=== PATIENT | female | born 1940 | race Caucasian/White ===

== ENCOUNTER 2021-06-04 10:08 | Outpatient (CLI) | payer MEDICARE, SELFPAY ==
--- NOTE | ~2021-06-04 | US_ITS ---
EXAMINATION: US venous doppler [facility] DATE: 06/04/2021 11:05 INDICATION: Bilateral lower limb swelling TECHNIQUE: Scott scale images without and with compression and Doppler images of the bilateral lower e xtremity veins were obtained. COMPARISON: None FINDINGS: The right common femoral vein, profunda femoral vein, femoral vein, popliteal vein, peroneal trunk, p osterior tibial veins, and greater saphenous vein are patent. A right-sided Bashir's cyst is noted whi ch measures up to 6.7 cm. The left common femoral vein, profunda femoral vein, femoral vein, popliteal vein, peroneal trunk, po sterior tibial veins, and greater saphenous vein are patent. IMPRESSION: 1. Patent bilateral lower extremity veins. No evidence of deep venous thrombosis. 2. Right-sided Bashir's cyst. Reviewed, dictated and finalized at location A. CINE TECH IMPRESSION: 1. Patent bilateral lower extremity veins. No evidence of deep venous thrombosi s. 2. Right-sided Bashir's cyst.
== END 2021-06-04 10:09 | disposition home or self-care (01) ==
LOC: ANHIMG 10:12
PROVIDERS: PCP Family Medicine; Visit Provider Physician Assistant
DX: M79.89 Other specified soft tissue disorders (principal); M71.21 Synovial cyst of popliteal space [Baker], right knee
CPT/HCPCS: 93970

== ENCOUNTER → 2021-06-05 10:11 | Outpatient (CLI) | payer MEDICARE, SELFPAY ==
--- NOTE | ~2021-06-05 | MM_ITS ---
EXAMINATION: MM screening eder BI w bernice HISTORY: Screening TECHNIQUE: Craniocaudal and mediolateral oblique 3-D tomosynthesis images were obtained and synthetic 2-D images were generated. CAD analysis was submitted and interpreted. COMPARISON: Comparison to multiple prior studies sequentially, with oldest reviewed study dated 04/2014. BREAST PARENCHYMAL COMPOSITION: There are scattered areas of fibroglandular density. FINDINGS: There is no evidence of suspicious mass, calcification, or architectural distortion to sugg est malignancy in either breast. There has been no suspicious interval change. IMPRESSION: 1. No mammographic evidence of malignancy. 2. Recommend routine screening mammography in one year. BI-RADS Category 1: Negative Reviewed, dictated and finalized at location A. E LINING CURER
--- NOTE | ~2021-06-05 | DEXA_ITS ---
Bone Density Report Name: ANCA ESQUIVEL Age: 80 Sex: Female Ethnicity: White Date of : 1940 Indication: postmenopausal; screening for osteoporosis; height loss; Referring Provider: Neel Painter Study: Bone densitometry was performed. Exam Date: June 05, 2021 Accession number: [id number] Bone Density: Region BMD T-score Z-score Classification AP Spine (L1-L4) 1.179 1.2 4.0 Normal Femoral Neck (Left) 0.734 -1.0 1.4 Normal Total Hip (Left) 0.798 -1.2 1.0 Osteopenia Femoral Neck (Right) 0.700 -1.3 1.1 Osteopenia Total Hip (Right) 0.808 -1.1 1.1 Osteopenia Total Hip Mean 0.803 -1.2 1.1 Osteopenia World Health Organization criteria for BMD impression classify patients as: Normal (T-score at or above -1.0), Osteopenia (T-score between -1.0 and -2.5), or Osteoporosis (T-score at or below -2.5). 10-year Fracture Risk(1): Major Osteoporotic Fracture 13% Hip Fracture 3.2% Reported Risk Factors: [place] (), Neck BMD=0.700, BMI=25.2 (1) FRAX(R) Version 3.08. Fracture probability calculated for an untreated patient. Fracture probability may be lower if the patient has received treatment. Clinical Information Provided by Patient: Has used the following medications: Calcium Patient maximum height was 62 Menopause Age: 47 Does not regularly consume dairy products Drinks caffeinated beverages Onset of menses at age 10 Number of children 3 Impression: The patient has low bone mass, based on the Right Femoral Neck T-score. The patient has an estimated ten-year risk of hip fracture of 3.2% and an estimated ten-year risk of major fracture of 13%, based on the WHO FRAX algorithm. Discussion: BONE DENSITY IS LOW AT ONE OR MORE SKELETAL SITES. THE PATIENT'S BMD AND CLINICAL RISK FACTORS CONTRIBUTE TO THIS PATIENT'S INCREASED RISK OF FRACTURE. This patient's lowest T-score is low at one or more skeletal sites. It meets the World Health Organization's (WHO) criteria for ?low bone mass? (T-score between -1.0 and -2.5). The patient's 10-year risk of hip fracture as calculated by FRAX exceeds the threshold where pharmacological therapy is recommended by the National Osteoporosis Foundation (NOF). However, all treatment decisions require clinical judgment and consideration of individual patient factors, including patient preferences, comorbidities, previous drug use, risk factors not captured in the FRAX model (e.g., frailty, falls, vitamin D deficiency, increased bone turnover, interval significant decline in bone density) and possible under or overestimation of fracture risk by FRAX. The patient should follow a healthful lifestyle (good nutrition with adequate calcium and vitamin D, and appropriate weight-bearing exercise). Follow-Up: Consider a repeat BMD and Vertebral Fracture Assessm
== END ==
PROVIDERS: PCP Family Medicine; Visit Provider Physician Assistant
DX: Z12.31 Encounter for screening mammogram for malignant neoplasm of breast (principal); Z78.0 Asymptomatic menopausal state; M85.89 Other specified disorders of bone density and structure, multiple sites
CPT/HCPCS: 77063; 77067; 77080

== ENCOUNTER 2022-01-20 09:48 | Outpatient (CLI) | payer MEDICARE, SELFPAY ==
--- NOTE | 2022-01-20 11:09 | ECG_ITS ---
Measurements Intervals [place] Rate: 68 P: 54 RI: 144 QRS: 20 QRSD: 93 T: 52 QT: 321 QTc: 342 Interpretive Statements SINUS RHYTHM BASELINE ARTIFACT NONSPECIFIC ST & T-WAVE ABNORMALITY BORDERLINE ECG NO PREVIOUS ECG AVAILABLE FOR COMPARISON Electronically Signed On 01-20-2022 15:11:51 CDT by Mark Chow M.D.
[2022-01-20 12:42] LABS: Basophils Absolute Auto 0.1 K/mm3 (0.0-0.1); Basophils Percent Auto 0.7 % (0.2-1.2); Eosinophils Absolute Auto 0.2 K/mm3 (0-0.3); Eosinophils Percent Auto 2.8 % (0-4.4); Hematocrit 44.5 % (37.0-47.0); Hemoglobin 14.1 g/dL (12.0-15.0); Immature Granulocyte Absolute 0.02 K/mm3 (0.00-0.031); Immature Granulocyte Percent A 0.3 % (0-0.5); Lymphocytes Absolute Auto 2.02 K/mm3 (0.9-3.2); Mean Corpuscular HGB Conc 31.7 g/dl (32-36); Mean Corpuscular Hemoglobin 30.3 pg (26-34); Mean Corpuscular Volume 95.7 fl (80-100); Mean Platelet Volume 10.5 fl (7.4-10.4); Monocytes Absolute Auto 0.5 K/mm3 (0.1-0.6); Neutrophils Absolute Auto 3.9 K/mm3 (1.3-6.7); Neutrophils Percent Auto 58.2 % (45.5-73.1); Platelet Count Result 186 k/mm3 (150-375); Red Blood Count 4.65 M/mm3 (4.2-5.4); Red Cell Distribution Width 13.8 % (11.5-14.5); White Blood Count 6.7 K/mm3 (4.5-10.0)
[2022-01-20 12:53] LABS: Anion Gap 10 mmol/L (8-16); Blood Urea Nitrogen 21 mg/dL (7-17); Calcium 10.3 mg/dL (8.4-10.2); Carbon Dioxide 30 mmol/L (22-30); Chloride 102 mmol/L (98-107); Estimated Glomerular Filt Rate 53; Glucose 83 mg/dL (65-110); Potassium 4.2 mmol/L (3.4-5.0); Sodium 142 mmol/L (137-145)
[2022-01-20 12:56] LABS: Prothrombin Time 12.7 Seconds (11.1-14.7)
[2022-01-20 12:56] LABS: Urine Cotinine NEGATIVE
[2022-01-20 13:10] LABS: Hemoglobin A1C 5.3 % (<5.7)
== END 2022-01-20 09:49 | disposition home or self-care (01) ==
LOC: ANHSURGERY 09:55
PROVIDERS: Anesthesiology; PCP Emergency Medicine; Visit Provider Orthopaedic Surgery
DX: M17.12 Unilateral primary osteoarthritis, left knee (principal); N18.9 Chronic kidney disease, unspecified; Z01.818 Encounter for other preprocedural examination; R94.31 Abnormal electrocardiogram [ECG] [EKG]
CPT/HCPCS: 36415; 80048; 80307; 82040; 83036; 85025; 85610; 85730; 86850; 86900; 86901; 87081; 93005

== ENCOUNTER 2022-01-29 01:24 | Day surgery (SDC) | payer MEDICARE, SELFPAY ==
[2022-01-20 10:20] VITALS: PULSE 65; RESP 16; TEMP 36.4; O2SAT 98; BMI 25.1
--- NOTE | 2022-01-20 10:32 | PC.NURSE ---
Report to the Outpatient Waiting Room, entrance under the green pavilion located off [facility], at time __6:30AM on date _01/29/22 . OR Time: __8:30AM . Time changes happen often and if your time is changed the preop area will call you the afternoon before. - You and your visitor will be asked to self-screen and do not enter if you have any COVID symptoms. - Only one visitor and NO children visitors are allowed at this time. - The patient visitor is requested to leave or wait in car when not with patient due to restrictions. - A mask is required within the hospital. Patients may have clear liquids (water, carbonated beverages, clear teas, apple juice) until 3 hours prior to surgery with a maximum of 20 ounces. - No food from midnight until time of surgery Take the following medications with a SIP of water the morning of surgery: ___AMLODIPINE, METOPROLOL Medications to discontinue per physician HOLD ALL VITAMINS/SUPPLEMENTS (MULTIPLE VITAMINS & GLUCOSAMINE) 3 DAYS PRE-OP- LAST DOSE 01/25/22, __HOLD ASPIRIN 5 DAYS PRE-OP- LAST DOSE 01/23/22 Please no make-up, nail japanese, hairspray, perfume, deodorant, or body powder the day of surgery. No jewelry (including any body piercings) or valuables the day of surgery, leave them at home. Please take a shower or bath the night before, or the morning of, surgery with an antibacterial soap. Wear comfortable, loose fitting clothing. Children are encouraged to wear pajamas. - Jewelry must be removed prior to entering the operating room. Rings and piercings that are not removed may be cut off. - The hospital will not accept responsibility for valuables. - Please leave all valuables, including medications, at home the day of surgery. If you are going home after surgery, a licensed electric train driver must drive you home. - NO public transportation without another adult. - We recommend that an adult stay with you for 24 hours following discharge. - We also recommend that you do not drive, make important decision, drink alcoholic beverages, or take any drugs that were not prescribed by your health care provider for at least 24 hours after your discharge time. Follow any additional instructions given to you from your surgeon. If you or anyone in your household have experienced Covid symptoms in the past week, please notify your surgeon or the nurse liaison at the phone number below for possible testing. Telephone instructions given to _PATIENT and asked if any additional questions and then verbalized understanding. Patient advised to call surgeon office or pre surgery nurse liaison [phone] if any additional questions.
--- NOTE | 2022-01-27 11:57 | PM.IMHP ---
H&P: HPI History of Present Illness Date/Time: 01/27/22 11:57 Chief Complaint: the patient is an 81-year-old female who presents with chronic ongoing history of left knee pain. The patient has advanced primary osteoarthritis unrelieved by conservative measures including cortisone therapy and anti-inflammatories over time. The patient has aching pain with startup pain rest pain and night pain cannot stand or walk for long periods. She has limited her daily activities it even keeps her awake at night. X-rays show advanced primary osteoarthritis left knee joint. The patient has discussed treatment options in detail with Dr. Lomeli has failed conservative measures she would now like to proceed with a left total knee arthroplasty. Review of Systems Review of Systems: Ten point review of systems otherwise negative [facility] Past Medical History Medical History Bone spur of other site Surgical History Surgical History H/O toe surgery H/O tubal ligation History of cholecystectomy Family History Family History Mother Hypertension Family history of Parkinson's disease Father Family history of elevated blood lipids Cerebrovascular accident Sibling Carcinoma of colon Family history of malignant neoplasm of breast in first degree relative Other Family history of malignant neoplasm of breast Social History Social History Smoking status: Never smoker Alcohol intake: never Substance use: never Substance use type: does not use Additional living arrangements comments: Gender identity (if verbalized by the patient): Female Spiritual care concerns: No Agree to blood products: Yes Meds Home Medications and Allergies Home Medications Medication Instructions Recorded Confirmed Type aspirin 81 mg tablet,delayed 81 mg PO DAILY 04/27/19 01/20/22 History release (Adult Low Dose Aspirin) betamethasone dipropionate 0.05 % 1 applic topical BID PRN itching 11/18/19 01/20/22 Rx topical cream #45 grams cetirizine 10 mg capsule 10 mg PO DAILY 01/20/22 01/20/22 History fluticasone propionate 50 2 spray intranasal DAILY PRN 01/20/22 01/20/22 History mcg/actuation nasal Congestion spray,suspension (Flonase Allergy Relief) glucosamine-chondroitin 750 mg-600 2 tablet PO DAILY 01/20/22 01/20/22 History mg tablet multivitamin 1 tablet PO DAILY 01/20/22 01/20/22 History pramipexole 0.25 mg tablet 0.25 mg PO TID 01/20/22 01/20/22 History Allergies Allergy/AdvReac Type Severity Reaction Status Date / Time vaccine adjuvant system, Allergy Intermediate local Verified 01/20/22 10:03 AS01B liposomal edema and [From Shingrix (PF)] rash , extensive varicella-zoster virus Allergy Intermediate local Verified 01/20/22 10:03 glycoprotein E, recombinant edema and [From Shingrix (PF)] rash , extensive Exam Narrative: on exam the patient is noted be a well-developed well-nourished female no acute distress alert oriented x3. Normal mood and affect. The patient is noted be 5 ft 1 in tall 127 lb the BMI of 24. Hearing and vision are intact. Respiratory is good no distress. Pulse regular rate and rhythm. Abdomen benign. Extremities showed the patient's left knee to be painful with manipulation and range of motion. She has tenderness on the joint lines. Extremes of motion with subpatellar crepitation mild effusion swelling knee joint is otherwise stable strength is 5 5 neurovascularly she is intact hips move well with negative Stinchfield negative Ronni. Patient walks a limp because of her left knee pain. Skin is intact without rashes or lesions. 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 Assessment and Plan Assessment and plan (1) Primary osteoarthritis of left knee: Co
[2022-01-29] VITALS (20 sets, daily range): BP systolic 106–161; BP diastolic 49–68; PULSE 45–74; RESP 11–16; TEMP 36.2–36.7; O2SAT 94–100
--- NOTE | ~2022-01-29 | XR_ITS ---
EXAMINATION: XR knee LT 2V DATE: 01/29/2022 09:28 INDICATION: Postoperative evaluation following left total knee arthroplasty. TECHNIQUE: Anteroposterior and lateral views of the left knee were obtained. COMPARISON: None. FINDINGS: Left total knee arthroplasty with patellar resurfacing appears well seated and in near anatomic align ment. No fractures identified. Proximal patellar enthesophytes. Skin giovanni and expected postoperative subcutaneous and intra-articular gas. IMPRESSION: 1. Left total knee arthroplasty, negative for postoperative purposes. Reviewed, dictated and finalized at location B.
[2022-01-29] MEDS: LACTATED RINGERS 1,000 ML 30 ML IV CONT ×2 (07:00→10:36)
[2022-01-29] MEDS: ACETAMINOPHEN 500 MG TABLET 1000 MG PO (07:02)
--- NOTE | 2022-01-29 07:10 | WPDHPUPDATE1 ---
History and Physical Update Update Date/Time: 01/29/22 07:10 History and Physical has been reviewed, including an updated exam of the patient. There are NO changes in the patient's condition. Risks, benefits, and alternatives have been discussed and questions answered. Patient agrees to proceed with procedure.
[2022-01-29] MEDS: TRANEXAMIC ACID 1,000MG/ISO100 1,000 MG/100 ML BAG 200 MG IVPB (07:15)
--- NOTE | 2022-01-29 07:24 | WPDANESEPPF ---
Anes - Initial Pre Proc Eval Procedure: Operation Date: 01/29/22 07:30 Proposed Procedures p Left Total Knee Arthroplasty - Addy Lomeli MD Date/Time: 01/29/22 07:24 Surgeon: Addy Lomeli MD Pre Op Diagnosis: OA left knee Patient Data Age: 81 Gender: F Height: 1.52 m Weight: 58.2 kg Last Vital Signs Temp 36.3 C L 01/29/22 07:10 Pulse 62 01/29/22 07:10 Resp 16 01/29/22 07:10 BP 161/68 H 01/29/22 07:10 Pulse Ox 98 01/29/22 07:10 O2 Del Method Room Air 01/29/22 07:10 Allergies Allergy/AdvReac Type Severity Reaction Status Date / Time vaccine adjuvant system, Allergy Intermediate local Verified 01/29/22 06:39 AS01B liposomal edema and [From Shingrix (PF)] rash , extensive varicella-zoster virus Allergy Intermediate local Verified 01/29/22 06:39 glycoprotein E, recombinant edema and [From Shingrix (PF)] rash , extensive Home Medications Medication Instructions Recorded Confirmed Type aspirin 81 mg tablet,delayed 81 mg PO DAILY 04/27/19 01/29/22 History release (Adult Low Dose Aspirin) betamethasone dipropionate 0.05 % 1 applic topical BID PRN itching 11/18/19 01/29/22 Rx topical cream #45 grams cetirizine 10 mg capsule 10 mg PO DAILY 01/20/22 01/29/22 History fluticasone propionate 50 2 spray intranasal DAILY PRN 01/20/22 01/29/22 History mcg/actuation nasal Congestion spray,suspension (Flonase Allergy Relief) glucosamine-chondroitin 750 mg-600 2 tablet PO DAILY 01/20/22 01/29/22 History mg tablet multivitamin 1 tablet PO DAILY 01/20/22 01/29/22 History pramipexole 0.25 mg tablet 0.25 mg PO TID 01/20/22 01/29/22 History Patient hx anesthesia problems: none Family hx anesthesia problems: none Results Review: All pre-operative results and documents have been reviewed as part of the pre-operative evaluation. [facility] Past Medical History Medical History (Updated 01/29/22 @ 07:24 by Sterling Paris MD) Bone spur of other site HTN (hypertension) Hyperlipidemia Surgical History Surgical History H/O toe surgery H/O tubal ligation History of cholecystectomy Family History Family History Mother Hypertension Family history of Parkinson's disease Father Family history of elevated blood lipids Cerebrovascular accident Sibling Carcinoma of colon Family history of malignant neoplasm of breast in first degree relative Other Family history of malignant neoplasm of breast Social History Social History Smoking status: Never smoker Alcohol intake: never Substance use: never Substance use type: does not use Living arrangements: with family Additional living arrangements comments: Gender identity (if verbalized by the patient): Female Spiritual care concerns: No Agree to blood products: Yes Anes - Eval Final PreProcedure Day of Procedure 01/29/22 07:24 Patient weight: normal Heart: regular rate and rhythm Lungs: clear to auscultation Airway: Mallampati scale class II Neurological: alert and oriented Last oral intake: >/= 8 hours ASA classification: II Emergent: no Anesthetic plan: proceed Anesthesia type and monitoring: general LMA and standard monitoring Results Review: All pre-operative results and documents have been reviewed as part of the pre-operative evaluation. Informed Consent: The patient's anesthetic plan and its attendant risks and benefits were discussed with the patient/family/POA. Questions were solicited and answers provided to the satisfaction of the patient/family/POA.
--- NOTE | 2022-01-29 07:25 | WPDANESPNB ---
Anes - Peripheral Nerve Block Date/Time: 01/29/22 07:25 I have discussed with the patient/family/POA the placement of a peripheral nerve block for post-operative pain management, including associated risks, benefits, complications, and side effects. Alternative methods of post-operative analgesia were detailed. Questions were solicited and answers provided to the satisfaction of the patient/family/POA. Time-Out: A pre-procedural Time-Out was completed immediately before starting the procedure and confirmed: Patient Identification, Site, Procedure, Patient Position and the Availability of Requisite Equipment. Clinical Indications: Acute post-operative pain management requested by the operative surgeon. Nerve Block Insertion Note Anes-nerve block: femoral left Patient position: supine Skin prep: chlorhexidine Needle: 22 gauge, stimulating, insulated echogenic needle. Needle length: 50 mm Technique: nerve stimulation lost at (mA) (.3) Injectate: bupivacaine 0.25% with epi 5 mcg/ml (20cc) Observations: tolerated well Complications: none Procedure start time:: 719 Procedure end time:: 724
[2022-01-29] MEDS: ceFAZolin 2 GM/D5W 50 ML 2 GM/50 ML BAG IVPB (07:31)
[2022-01-29] MEDS: GENTAMICIN BONE CEMENT REFOBACIN 1 EACH TOPICAL (07:59)
--- NOTE | 2022-01-29 08:50 | P.OP_ITS ---
Procedure Note - Detailed Date of Procedure 01/29/22 Pre-op Diagnosis OA left knee Post-op Diagnosis Same Procedure Performed [Left] total knee arthroplasty Surgeon Addy Lomeli MD [employer] T[employer] Alvino De Anesthesia General Description of Procedure The patient was brought to the operating room. General anesthetic was administered. Placed on the operating table and sterilely prepped and draped in usual manner. A longitudinal incision was made. Tourniquet inflated to 300 mmHg for a total of [time] minutes. Dissection carried down to the fascia. Medial parapatellar incision was made and the patella subluxated laterally. Patella cut from [19] to [14] mm and sized for a [34] mm button. The tibia cut perpendicular to the long axis and femur cut in 5 degrees of valgus, a [65] femur trialed. [67] tibia was felt to fit the best. The soft tissue balanced, hemostasis obtained. All [address], [67] tibia, [65] femur, [34] mm patella, and [] mm poly. Motion was 0-125 degrees with good stablility and flexion and extension. The wound was closed with #2 v icryl, 2-0 Vicryl and giovanni. Implants [employer] Estimated Blood Loss 200 IV Fluids 250 Drains No Packing No Pathology None sent Complications No immediate complications Condition Stable Disposition PACU
[2022-01-29] MEDS: fentaNYL CITRATE INJ (*CRX) 100 MCG/2 ML VIAL 25 MCG IV PUSH ×4 (09:34→10:34)
--- NOTE | 2022-01-29 09:38 | P.OPB_ITS ---
Procedure Note - Brief Procedure Note - Brief Date of procedure: 01/29/22 Pre-op diagnosis: OA left knee preop diagnosis-Advanced primary osteoarthritis left knee postop diagnosis - advanced primary osteoarthritis left knee status post left total knee arthroplasty. Procedure performed: Left total knee arthroplasty Description of procedure: I, Alvino De, entered the operating room at 7:15am, I then proceeded to assist with positioning of the patient application of a tourniquet prepping and draping for the surgical procedure. Once the placement was done and the patient was under anesthesia assisted with sterile draping and then preparation of the operative field. Once Dr. Lomeli made the incision I assisted with hemostasis, wound retraction, implant placement and irrigation throughout the procedure. Once the implants were in place and the cement was dry and then proceeded with excess cement removal hemostasis using suction and Bovie and Surgicel powder. I then proceeded with wound closure starting with the deep layers closing the capsule of the knee with 2. Vicryl and 2. Quill type suture. I irrigated the wound once again then closed the superficial skin layers with 2- 0 Vicryl 0 Quill and giovanni. I then applied a sterile dressing and help transfer the patient from the operating table to the stretcher for transport to the recovery room. I exited the room at 9:15 a.m. for total time of 2 hours involved in the procedure. Patient was discharged to recovery room in good condition no operative complications were noted. Total blood loss was 200 cc Surgeon: Addy Lomeli MD 1st graduate research assistant- Alvino De, PAC
--- NOTE | 2022-01-29 11:54 | SUR.PHASEI ---
Vital signs stable pain well controlled. Patient awaiting bed placement on 2 Med. Patient will be moved to pre-op holding area until bed becomes available. Cat, RN assuming care of this patient. Patient's family updated.
--- NOTE | 2022-01-29 11:56 | SUR.PHASEI ---
1156- Assuming care for patient in pre-op holding room 11 due to room on floor being unavailable at this time. Patient and daughter verbalize understanding.
--- NOTE | 2022-01-29 13:25 | ADMGEN ---
This patient, Alyson Dumont, was admitted to Medical Room 255-. Patient/family oriented to hospital policies and general routines including ID bracelet, bed and alarms, visiting hours, pain management, procedures, bathroom and other care routines, personal items, smoking policy, room service/diet, and visiting hours. Information on how to activate the Rapid Response Team has been discussed. Patient/Family are encouraged to report perceived risks to care and to ask questions if they do not understand what they are told or what they should do.
[2022-01-29] MEDS: ASPIRIN 81 MG ENTERIC TABLET PO (16:23)
[2022-01-29] MEDS: RIVAROXABAN 10 MG TABLET PO (16:23)
[2022-01-29] MEDS: FAMOTIDINE 20 MG TABLET PO (16:24)
[2022-01-29] MEDS: MULTIVITAMINS THERAPEUTIC TAB (*BKC) 1 TABLET PO (16:26)
[2022-01-29] MEDS: allopurinoL 300 MG TABLET PO (16:27)
[2022-01-29] MEDS: CELECOXIB 200 MG CAPSULE PO (16:27)
[2022-01-29] MEDS: SIMVASTATIN 10 MG TABLET PO (16:28)
[2022-01-29] MEDS: SENNA/DOCUSATE SODIUM TABLET 2 TAB PO (16:28)
[2022-01-29] MEDS: PRAMIPEXOLE 0.25 MG TABLET PO (16:29)
[2022-01-29] MEDS: polyethylene glycoL 3350 17 GM POWD.PACK PO (16:31)
[2022-01-29] MEDS: HYDROcodone/acetaminophen (*CRX) 7.5-325 MG TABLET 1 TAB PO ×2 (17:53→20:11)
--- NOTE | 2022-01-29 20:06 | PM.IMCN ---
Assessment and Plan Assessment and plan (1) History of total knee arthroplasty: Code(s): Z96.659 - Presence of unspecified artificial knee joint Status: Acute Assessment and Plan: - per Dr. Lomeli today. See postop report. Left knee dressing is dry intact. - the patient is requesting home health assistance when she goes home because her has dementia and is not able to help much at all. She stated that her daughter can help until this Thursday but then her daughter has to go back to work. - I did consult the home care rn for further assistance. - the patient stated that she is supposed to go to outpatient physical therapy but stated that she may not be able to attend that physical therapy and she will have to make other arrangements because she will be able to drive and will not have anybody the drive her. She may need assistance with getting a ride. - DVT prophylaxis per ortho it looks like the patient is on SCDs And she is on Xarelto. - postop care per Dr. Lomeli. - analgesics per Dr. Lomeli. The patient has fentanyl ordered as well as Celebrex and [place] -PT and OT per Dr. Lomeli. (2) Gout, unspecified: Qualifiers: Gout site: unspecified site Gout etiology: unspecified cause Chronicity: unspecified Qualified Code(s): M10.9 - Gout, unspecified Code(s): M10.9 - Gout, unspecified Status: Acute Assessment and Plan: - her allopurinol has been continued. (3) Essential (primary) hypertension: Code(s): I10 - Essential (primary) hypertension Status: Acute Assessment and Plan: -Her amlodipine has been continued -her metoprolol has been continued. -her Diovan has been continued. Plan I think Dr. Lomeli for the opportunity to consult on this pleasant lady. HPI Data of Consult Consult date: 01/29/22 Requesting Physician: Addy Lomeli MD Primary Care Provider: Alexei Lambert MD Consult Narrative Narrative: Alyson Dumont is a 81 year old female who has chronic ongoing history of left knee pain. The patient is a fairly healthy female. The patient has advanced primary osteoarthritis to her left knee. The patient has tried conservative measures including cortisone therapy and anti-inflammatories. The patient has achy pain with start-up, rest pain and night pain. The patient stated that she went shopping 1 day and was in severe pain to that left knee. Then she decided that she wanted to undergo a left total knee arthroplasty per Dr. Lomeli. Estimated blood loss was 200 cc. Please see operative note. The patient stated that she is not nauseated and that she also has been up to the chair. the patient has an ice pack to left leg and is requesting to have the continuous ice therapy. The patient was admitted to surgery and the hospitalist group was asked to consult on the patient. Date of service is 01/29/2022. Review of Systems Review of Systems: See HPI All systems reviewed & are unremarkable except as noted in HPI and below Constitutional: Constitutional: Reports as per HPI and Reports no additional constitutional complaints Eyes: Eyes: Reports as per HPI and Reports no additional eye complaints ENT: Reports system reviewed and no additional complaints, except as documented and Reports Normal hearing present Cardiovascular: Cardiovascular: Reports no additional cardiovascular complaints Respiratory: Respiratory: Reports no additional respiratory complaints and Reports no additional respiratory complaints Gastrointestinal: Gastrointestinal: Reports as per HPI and Reports no additional gastrointestinal complaints Musculoskeletal: Musculoskeletal: Reports no additional musculoskeletal complaints Integumentary/Breasts: Skin/Breast: Reports system reviewed and no additional complaints, except as docu and Reports as per HPI Neurologic: Reports system reviewed and no additional complaints, except as documented, Repor
[2022-01-30 02:00] VITALS: BP 122/62; PULSE 89; RESP 16; TEMP 36.7; O2SAT 96
[2022-01-30] MEDS: HYDROcodone/acetaminophen (*CRX) 7.5-325 MG TABLET 1 TAB PO ×3 (04:30→12:53)
[2022-01-30 05:15] VITALS: BP 107/67; PULSE 66; RESP 20; TEMP 36.6; O2SAT 98
[2022-01-30 06:15] LABS: Basophils Percent Auto 0.3 % (0.2-1.2); Eosinophils Percent Auto 0.1 % (0-4.4); Hematocrit 32.1 % (37.0-47.0); Hemoglobin 10.5 g/dL (12.0-15.0); Immature Granulocyte Absolute 0.06 K/mm3 (0.00-0.031); Immature Granulocyte Percent A 0.7 % (0-0.5); Lymphocytes Absolute Auto 1.31 K/mm3 (0.9-3.2); Lymphocytes Percent Auto 15.2 % (18.3-44.2); Mean Corpuscular HGB Conc 32.7 g/dl (32-36); Mean Corpuscular Hemoglobin 30.3 pg (26-34); Mean Corpuscular Volume 92.5 fl (80-100); Mean Platelet Volume 10.6 fl (7.4-10.4); Monocytes Absolute Auto 0.8 K/mm3 (0.1-0.6); Monocytes Percent Auto 9.7 % (2.6-8.5); Neutrophils Absolute Auto 6.4 K/mm3 (1.3-6.7); Platelet Count Result 144 k/mm3 (150-375); Red Blood Count 3.47 M/mm3 (4.2-5.4); Red Cell Distribution Width 13.4 % (11.5-14.5); White Blood Count 8.6 K/mm3 (4.5-10.0)
[2022-01-30 06:33] LABS: Anion Gap 9 mmol/L (8-16); Blood Urea Nitrogen 26 mg/dL (7-17); Calcium 9.4 mg/dL (8.4-10.2); Carbon Dioxide 26 mmol/L (22-30); Chloride 104 mmol/L (98-107); Estimated CRCL calculation 23 ml/min; Estimated Glomerular Filt Rate 43; Glucose 124 mg/dL (65-110); Sodium 139 mmol/L (137-145)
[2022-01-30] MEDS: SIMVASTATIN 10 MG TABLET PO (09:26)
[2022-01-30] MEDS: PRAMIPEXOLE 0.25 MG TABLET PO ×2 (09:26→12:53)
[2022-01-30] MEDS: polyethylene glycoL 3350 17 GM POWD.PACK PO (09:26)
[2022-01-30] MEDS: SENNA/DOCUSATE SODIUM TABLET 2 TAB PO (09:26)
[2022-01-30] MEDS: FAMOTIDINE 20 MG TABLET PO (09:27)
[2022-01-30] MEDS: ASPIRIN 81 MG ENTERIC TABLET PO (09:27)
[2022-01-30] MEDS: amLODIPine BESYLATE 2.5 MG TABLET PO (09:27)
[2022-01-30] MEDS: VALSARTAN 160 MG TABLET 320 MG PO (09:27)
[2022-01-30] MEDS: CELECOXIB 200 MG CAPSULE PO (09:28)
[2022-01-30] MEDS: LORATADINE 10 MG TABLET PO (09:28)
[2022-01-30] MEDS: MULTIVITAMINS THERAPEUTIC TAB (*BKC) 1 TABLET PO (09:28)
[2022-01-30] MEDS: allopurinoL 300 MG TABLET PO (09:28)
[2022-01-30 09:48] LABS: Vitamin D 25 Hydroxy 35.8 ng/mL
[2022-01-30 10:18] VITALS: BP 124/56; PULSE 76; RESP 16; TEMP 36.6; O2SAT 96
--- NOTE | 2022-01-30 10:52 | PM.IMPN ---
Progress Note: A&P Assessment and Plan (1) History of total knee arthroplasty: Code(s): Z96.659 - Presence of unspecified artificial knee joint Status: Acute Assessment and Plan: 01/29/[address] Lomeli. Postop management per Ortho. DVT prophylaxis with Xarelto, per Ortho. PT/OT. Pain control with oral narcotics. H/H 14/44.5 to 01/19 today. Asymptomatic. No s/s bleeding at dressing site. Monitor. (2) Gout, unspecified: Qualifiers: Gout site: unspecified site Gout etiology: unspecified cause Chronicity: unspecified Qualified Code(s): M10.9 - Gout, unspecified Code(s): M10.9 - Gout, unspecified Status: Chronic Assessment and Plan: Chronic, stable, continue allopurinol (3) Essential (primary) hypertension: Code(s): I10 - Essential (primary) hypertension Status: Acute Assessment and Plan: Chronic, stable. Continue amlodipine, metoprolol, and Diovan (4) CKD (chronic kidney disease) stage 3, GFR 30-59 ml/min: Qualifiers: Chronic kidney disease stage 3 subtype: stage 3a (GFR 45-59) Qualified Code(s): N18.31 - Chronic kidney disease, stage 3a Code(s): N18.30 - Chronic kidney disease, stage 3 unspecified Status: Acute Assessment and Plan: BUN 26, creatinine 1.2, GFR 43 today. Mildly elevated from preop labs. Baseline BUN 23-29, creatinine 1.14 to 1.26, GFR 53 previously. Patient appears at baseline. We discussed drinking more water to stay hydrated and patient should minimize/avoid NSAID use. Plan Thank you for allowing us to take care of your patient. Please do not hesitate to call with questions. Time Spent With Patient Time with patient: 15 - 25 minutes Subjective Date/time seen: 01/30/22 10:52 Interval history: Patient found sitting up in bed with daughter at bedside. She reports pain to her left knee that is tolerable with oral narcotics and she was able to participate in therapy today. She denies chest pain, SOB, dizziness, palpitations, abd pain, N/V, dysuria or paresthesia. No bear catheter at this time. She does report her mouth has been dry. Review of Systems Review of Systems: All systems reviewed & are unremarkable except as noted in HPI and below Exam Narrative: General:?sitting up in the bed. No acute distress. Well-developed older adult female. HEENT:?Normocephalic.?Pupils equal and round. Sclera anicteric.? Oral mucosa moist.? Neck:??No JVD. Respiratory:?RR regular and unlabored. Lung sounds clear to auscultation without wheezing, rhonchi or rales. Cardiovascular:?Normal S1 and S2 regular rate and rhythm. No murmurs, gallops and rubs. Gastrointestinal:??Abdomen is soft, nontender, and nondistended with positive bowel sounds. Skin:??Warm and dry. Left knee conrado wrap clean, dry and intact. Skin turgor good. Extremities:??No cyanosis, clubbing, or edema. Radial and pedal pulses intact. Grossly normal ROM all extremities. Intact dorsi and plantar flexion. Neuro:??Alert and oriented x4. No gross focal deficits. Sensation BLE intact. Psych:??Pleasant and cooperative with normal mood and affect.? Objective Data Vital Signs Vital Signs: Vital Signs - 24 hr 01/29/22 11:00 01/29/22 11:15 01/29/22 11:30 Temperature Pulse Rate 58 L 45 L 45 L Respiratory Rate 16 12 11 L Blood Pressure 133/61 118/54 L 112/53 L Pulse Oximetry 100 100 100 Oxygen Delivery Nasal Cannula Nasal Cannula Nasal Cannula Oxygen Flow Rate 2 2 2 01/29/22 11:45 01/29/22 11:55 01/29/22 12:25 Temperature 97.1 F L Pulse Rate 52 L 49 L 49 L Respiratory Rate 12 12 14 Blood Pressure 122/50 L 121/55 L 118/50 L Pulse Oximetry 94 98 96 Oxygen Delivery Room Air Room Air Room Air Oxygen Flow Rate 01/29/22 12:55 01/29/22 13:25 01/29/22 13:55 Temperature 97.5 F L 97.4 F L Pulse Rate 61 60 57 L Respiratory Rate 14 14 16 Blood Pressure 135/49 L 134/55 L 129/51 L Pulse Oximetry 98 98
[2022-01-30] MEDS: CYCLOBENZAPRINE HCL 5 MG TABLET PO (11:29)
--- NOTE | 2022-01-30 11:34 | PM.PNORT ---
Progress Note: A&P Assessment and Plan (1) Primary osteoarthritis of left knee: Code(s): M17.12 - Unilateral primary osteoarthritis, left knee Status: Acute Plan patient is doing well status post left total knee arthroplasty she will discharge to home today in good condition. She voiced understanding and agrees with the above plan. See discharge orders. Subjective Subjective Date/Time Seen: 01/30/22 11:34 Is doing well postop day 1 status post left total knee arthroplasty. No complaints did very well in physical therapy states she has very little postop pain. She is ready for discharge to home. Review of Systems Review of Systems: Ten point review of systems negative Exam Narrative: on exam the patient is noted be in no acute distress alert oriented x3. Normal mood and affect. Vital signs are stable she is afebrile neurovascular the patient is intact wound is clean and dry left knee caps are benign ambulating well with physical therapy tolerated therapy very well very little postop pain today. Objective Data Vital Signs Vital Signs: Vital Signs - 24 hr 01/29/22 11:45 01/29/22 11:55 01/29/22 12:25 Temperature 36.2 C L Pulse Rate 52 L 49 L 49 L Respiratory Rate 12 12 14 Blood Pressure 122/50 L 121/55 L 118/50 L Pulse Oximetry 94 98 96 Oxygen Delivery Room Air Room Air Room Air 01/29/22 12:55 01/29/22 13:25 01/29/22 13:55 Temperature 36.4 C L 36.3 C L Pulse Rate 61 60 57 L Respiratory Rate 14 14 16 Blood Pressure 135/49 L 134/55 L 129/51 L Pulse Oximetry 98 98 97 Oxygen Delivery Room Air Room Air Room Air 01/29/22 15:14 01/29/22 16:00 01/29/22 16:06 Temperature 36.3 C L Pulse Rate 71 Respiratory Rate 16 Blood Pressure 133/59 L Pulse Oximetry 95 Oxygen Delivery Room Air Room Air 01/29/22 18:16 01/29/22 20:36 01/29/22 20:00 Temperature 36.6 C 36.6 C Pulse Rate 71 67 Respiratory Rate 16 16 Blood Pressure 136/60 135/51 L Pulse Oximetry 96 95 Oxygen Delivery Room Air 01/30/22 02:00 01/30/22 05:15 01/30/22 10:18 Temperature 36.7 C 36.6 C 36.6 C Pulse Rate 89 66 76 Respiratory Rate 16 20 16 Blood Pressure 122/62 107/67 124/56 L Pulse Oximetry 96 98 96 Oxygen Delivery Intake/Output Intake/Output: Intake & Output 01/27/22 01/28/22 01/29/22 01/30/22 23:59 23:59 23:59 23:59 Intake Total 2512 680 Balance 2512 680 Meds/Results Medications: Active Medications Generic Name Dose Route Start Last Admin Trade Name Freq PRN Reason Stop Dose Admin Hydrocodone Bitart/Acetaminophen 1 tab 01/29/22 14:17 Hydrocodone/Acetaminophen (*Crx) 5-325 Mg Tablet PO Q4H PRN Pain Rated 4-6 Hydrocodone Bitart/Acetaminophen 1 tab 01/29/22 14:17 Hydrocodone/Acetaminophen (*Crx) 7.5-325 Mg Tablet PO Q6H PRN Pain Rated 7-10 Hydrocodone Bitart/Acetaminophen 1 tab 01/29/22 14:17 01/30/22 09:25 Hydrocodone/Acetaminophen (*Crx) 7.5-325 Mg Tablet PO 1 tab Q4HR KATHERINE Administration Allopurinol 300 mg 01/29/22 14:17 01/30/22 09:28 Allopurinol 300 Mg Tablet PO 300 mg DAILY KATHERINE Administration Amlodipine Besylate 2.5 mg 01/29/22 14:17 01/30/22 09:27 Amlodipine Besylate 2.5 Mg Tablet PO 2.5 mg DAILY KATHERINE Administration Aspirin 81 mg 01/29/22 14:17 01/30/22 09:27 Aspirin 81 Mg Enteric Tablet PO 81 mg DAILY KATHERINE Administration Celecoxib 200 mg 01/29/22 17:00 01/30/22 09:28 Celecoxib 200 Mg Capsule PO 200 mg BIDWM KATHERINE Administration Cyclobenzaprine HCl 5 mg 01/29/22 14:17 01/30/22 11:29 Cyclobenzaprine Hcl 5 Mg Tablet PO 5 mg Q8H PRN Administration Spasms Diphenhydramine HCl 25 mg 01/29/22 14:17 Diphenhydramine Hcl Inj 50 Mg/Ml Vial IV PUSH Q6H PRN Itching Famotidine 20 mg 01/29/22 14:17 01/30/22 09:27 Famotidine 20 Mg Tablet PO 20 mg DAILY KATHERINE Administration Fluticasone Propionate 2 spray 01/29/22 14:17 Fluticasone Propionate 0
[2022-01-30 11:48] VITALS: PULSE 70
[2022-01-30] MEDS: METOPROLOL SUCCINATE EXT REL 25 MG TABCR PO (11:48)
--- NOTE | 2022-01-30 11:48 | PM.DS ---
DS: Admitting Diagnosis Discharge Date January 30, 2022 Admitting Diagnosis severe primary osteoarthritis left knee discharge diagnosis severe primary osteoarthritis left knee status post left total knee arthroplasty. DS: Discharge Diagnosis Discharge Diagnosis Plan Patient is doing well postop day 1 ready for discharge to home DS: Summary Hospital Course Reason for hospitalization: the patient was taken to the operating room on January 29, 2022 Dr. Lomeli performed a left total knee arthroplasty. Patient was kept overnight for observation and did well. Had no significant postoperative complaints or pain. Vital signs are stable she is afebrile neurovascular the patient is intact wound is clean and dry calves are benign up ambulating independently with a walker tolerating therapy well. Postop day 1 she was ready for discharge to home by her request. Hospital Course: postop day 1 the patient did well after total knee arthroplasty on January 29, 2022 no postoperative complaints were noted. Pain is well controlled vital signs are stable she is afebrile neurovascular patient is intact wound is clean and dry. Calves are benign. Up ambulating independently with a walker did well in therapy ready for discharge to home postop day 1. Time Spent with Patient Time attestation: Total time spent providing and/or coordinating discharge services: Exam Narrative: Vital signs stable afebrile neurovascular patient is intact wound is clean and dry calves are benign alert oriented x3. Did well in therapy no significant complaints postop day 1. DS: Data Data Completed and Pending Labs on day of discharge: Labs from last 24 hours 01/30/22 01/30/22 01/30/22 05:46 05:46 05:46 WBC 8.6 RBC 3.47 L Hgb 10.5 L D Hct 32.1 L MCV 92.5 MCH 30.3 MCHC 32.7 RDW 13.4 Plt Count 144 L MPV 10.6 H Immature Gran % (Auto) 0.7 H Neut % (Auto) 74.0 H Lymph % (Auto) 15.2 L Davis % (Auto) 9.7 H Eos % (Auto) 0.1 Baso % (Auto) 0.3 Lymph # (Auto) 1.31 Davis # (Auto) 0.8 H Eos # (Auto) 0.0 Baso # (Auto) 0.0 Abs Immat Gran (auto) 0.06 H Absolute Neuts (auto) 6.4 Absolute Nucleated RBC 0.0 Nucleated RBC % 0.0 Sodium 139 Potassium 4.0 Chloride 104 Carbon Dioxide 26 Anion Gap 9 BUN 26 H Creatinine 1.20 H Estim Creat Clear Calc 23 Estimated GFR 43 L Glucose 124 H Calcium 9.4 Vitamin D 25-Hydroxy 35.8 Procedures/Treatments: Left total knee arthroplasty on January 29, 2022 Discharge Plan Discharge Patient Disposition: Home, Self-Care Discharge Instructions: patient is to be discharged to home general diet activity as tolerated weightbearing as tolerated left lower extremity with a walker at all times for support. The patient should continue with physical therapy as instructed she will have home health for total knee protocol physical therapy. Change dressing daily keep the wound clean and dry watch for evidence of infection. Patient will start Xarelto 10 mg daily for a total postoperative course of 2 weeks when this is complete she will go to aspirin 325 mg p.o. b.i.d. x1 month when this is complete, return to previous low-dose aspirin regimen. The patient is also to be discharged with [place] 7.5 mg p.o. q.6 hours p.r.n. pain. The patient will follow-up at 2 weeks postop for staple removal and wound recheck do her daily exercises on her own home as well. Patient is instructed to call the office immediately at [phone] for any problems difficulties or questions. Patient Instructions: Rivaroxaban (By mouth) Stand Alone Forms: Avoid NSAIDs Follow-up/Referrals: Addy Lomeli MD [Physician] - Discharge Medications: New hydrocodone-acetaminophen 7.5-325 mg Tablet 1 tablet PO Q6H PRN (Reason: Pain Rated 7-10) Qty: 40 0RF Xarelto 10 mg Tablet 10 mg PO DAILY@17 Qty: 13 0RF Continued allopurinol 300 mg tabl
[2022-01-30 14:10] VITALS: BP 142/64; PULSE 75; RESP 16; TEMP 36.7; O2SAT 98
== END 2022-01-30 15:22 | disposition home health service (06) ==
LOC: ANHSURGERY 06:27 → ANH2MED 14:23
PROVIDERS: Nurse Practitioner Family; PCP Emergency Medicine; Visit Provider Orthopaedic Surgery
PROC: (CPT 27447; principal; 2022-01-29 07:30)
DX: M17.12 Unilateral primary osteoarthritis, left knee (principal); G89.18 Other acute postprocedural pain; I12.9 Hypertensive chronic kidney disease with stage 1 through stage 4 chronic kidney disease, or unspecified chronic kidney disease; N18.31 Chronic kidney disease, stage 3a; E78.5 Hyperlipidemia, unspecified; Z79.82 Long term (current) use of aspirin; M10.9 Gout, unspecified
CPT/HCPCS: 27447; 64447; 36415; 73560; 80048; 80307; 82040; 82306; 83036; 85025; 85610; 85730; 86850; 86900; 86901; 87081; 93005; 97110; 97116; 97161; 97165; 97535; A9270; C1713; C1776; J0131; J0690; J1170; J1885; J2250; J2270; J2370; J2405; J2704; J2795; J3010; J3370; J7120

== ENCOUNTER → 2022-10-14 13:28 | Outpatient (CLI) | payer MEDICARE, SELFPAY ==
--- NOTE | ~2022-10-14 | MM_ITS ---
EXAMINATION: MM screening eder BI w bernice HISTORY: Screening mammogram TECHNIQUE: Craniocaudal and mediolateral oblique 3-D tomosynthesis images were obtained and synthetic 2-D images were generated. CAD analysis was submitted and interpreted. COMPARISON: June 05, 2021, March 24, 2019, March 03, 2018 bilateral screening mammogram exam inations BREAST PARENCHYMAL COMPOSITION: There are scattered areas of fibroglandular density. FINDINGS: There is no evidence of suspicious mass, calcification, or architectural distortion to sugg est malignancy in either breast. There has been no suspicious interval change. IMPRESSION: 1. No mammographic evidence of malignancy. 2. Recommend routine screening mammography in one year. BI-RADS Category 1: Negative Reviewed, dictated and finalized at location A.
== END ==
PROVIDERS: PCP Emergency Medicine; Visit Provider Emergency Medicine
DX: Z12.31 Encounter for screening mammogram for malignant neoplasm of breast (principal)
CPT/HCPCS: 77063; 77067

== ENCOUNTER → 2023-02-12 14:34 | Outpatient (CLI) | payer MEDICARE, SELFPAY ==
--- NOTE | ~2023-02-12 | XR_ITS ---
XR chest 2V 02/12/2023 15:01 Indication: Chronic cough Procedure: 2 view chest Comparison: 04/21/2027 Findings: Heart size normal. No focal air space disease, pulmonary edema, pleural effusion or suspect ed pneumothorax. No acute osseous abnormality. Impression: 1: No acute cardiopulmonary disease. Reviewed, dictated and finalized at location L. Impression: 1: No acute cardiopulmonary disease.
== END ==
PROVIDERS: PCP Emergency Medicine; Visit Provider Emergency Medicine
DX: R05.3 Chronic cough (principal)
CPT/HCPCS: 71046

== ENCOUNTER 2023-02-25 16:04 | Emergency (ER) | payer MEDICARE, SELFPAY ==
--- NOTE | ~2023-02-25 | CT_ITS ---
EXAMINATION: CT facial & cervical spine wo DATE: 02/25/2023 16:36 INDICATION: Head injury. TECHNIQUE: Computed tomography (CT) of the maxillofacial region and cervical spine was performed with out intravenous contrast. Automated exposure control and iterative reconstruction technique were empl oyed. The dose-length product was 199.71 mGy-cm. COMPARISON: None FINDINGS: MAXILLOFACIAL CT: There are likely changes of ocular lens replacement surgeries. There is dependent hematoma in left ma xillary sinus. There are fractures of the floor and lateral wall of left orbit, anterior and posterol ateral kennedy of left maxillary sinus, and left zygomatic arch. There is anterior displacement of the zygoma. There is mild mucosal thickening in the ethmoid sinuses. The mastoid air cells are normal. Th ere is a fracture of left nasal process of maxilla. CERVICAL SPINE CT: There is a multinodular goiter. There is 5 degrees levocurvature of cervical spine. Vertebral body he ights are normal. There is mildly decreased disc height at C4-C5 and moderately decreased disc height at C5-C6. The following disc levels are specifically discussed: C2-C3: There is no uncovertebral joint osteoarthritis. There is mild right and severe left facet join t osteoarthritis. There is mild left neural foraminal stenosis. There is no central canal stenosis. C3-C4: There is ankylosis of left uncovertebral joint with moderate hypertrophy. There is severe righ t facet joint osteoarthritis. There is ankylosis of left facet joint with severe hypertrophy. There i s moderate left neural foraminal stenosis. There is no central canal stenosis. C4-C5: There is mild left uncovertebral joint osteoarthritis. There is ankylosis of the facet joints with moderate hypertrophy. There is mild left neural foraminal stenosis. There is mild central canal stenosis. C5-C6: There is mild right and severe uncovertebral joint osteoarthritis. There is severe bilateral f acet joint osteoarthritis. There is mild right and moderate left neural foraminal stenosis. There is mild central canal stenosis. C6-C7: There is mild bilateral uncovertebral joint osteoarthritis. There is severe bilateral facet kimi int osteoarthritis. There is mild right and moderate left neural foraminal stenosis. There is mild ce ntral canal stenosis. C7-T1: There is no uncovertebral joint osteoarthritis. There is severe bilateral facet joint osteoart hritis. There is mild bilateral neural foraminal stenosis. There is mild central canal stenosis. IMPRESSION: 1. Acute fractures of the left zygomaticomaxillary complex. 2. Age-indeterminate fracture of left nasal process of maxilla. 3. Moderate cervical spondylosis. Reviewed, dictated and finalized at location E. ER CULTURIST
--- NOTE | ~2023-02-25 | CT_ITS ---
EXAMINATION: CT brain wo con DATE: 02/25/2023 16:31 INDICATION: Head injury. TECHNIQUE: Computed tomography (CT) of the head was performed without intravenous contrast. The mA wa s adjusted according to patient size. Iterative reconstruction technique was employed. The dose-lengt h product was 605.33 mGy-cm. COMPARISON: None FINDINGS: There are scattered areas of low attenuation in the cerebral white matter, which is within normal limits for the patient's age. There is no intracranial hemorrhage, acute infarction, or abnorm al intracranial mass lesion. The ventricles are normal in size. There are likely changes of ocular le ns replacement surgeries. There are fractures of left zygomatic arch, left orbital floor and lateral wall, and anterior and posterolateral kennedy of left maxillary sinus. There is dependent hematoma in l eft maxillary sinus. The mastoid air cells are normal. IMPRESSION: 1. Normal aging brain. 2. Acute fractures of the left zygomaticomaxillary complex. Reviewed, dictated and finalized at location E. AD INSPECTOR
--- NOTE | ~2023-02-25 | XR_ITS ---
EXAMINATION: XR knee RT 3V DATE: 02/25/2023 16:41 INDICATION: Right knee pain. Fall. TECHNIQUE: 3 views of right knee were obtained. COMPARISON: Right knee radiographs 01/12/2014 FINDINGS: Bone alignment is normal. No fracture. There is severe osteoarthritis of patellofemoral com partment and mild osteoarthritis of medial and lateral compartments. There is chondrocalcinosis of th e menisci. No knee joint effusion. IMPRESSION: 1. Severe right knee osteoarthritis. Reviewed, dictated and finalized at location E. IAL EFFECTS DESIGNER
[2023-02-25 16:07] VITALS: BP 213/80; PULSE 67; RESP 16; TEMP 36.4; O2SAT 95
--- NOTE | 2023-02-25 16:23 | ED.HEATRA ---
HPI - Head Injury General Chief complaint: Head Injury Stated complaint: fall with head injury Time Seen by Provider: 02/25/23 16:16 History of Present Illness HPI Narrative: 82-year-old female presents to the emergency room for evaluation of a head injury. Patient states [facility] when she tripped and fell, striking the left side of her face and her right knee. Patient is not anticoagulated. Denies any LOC or altered mental status. Denies dizziness or lightheadedness. Denies any visual or hearing changes. Denies any loose teeth. Denies nausea or vomiting. Denies any somnolence. Related Data Home Medications Medication Instructions Recorded Confirmed cetirizine 10 mg capsule 10 mg PO DAILY 01/20/22 02/12/23 glucosamine-chondroitin 750 mg-600 2 tablet PO DAILY 01/20/22 02/12/23 mg tablet multivitamin 1 tablet PO DAILY 01/20/22 02/12/23 aspirin 81 mg tablet 81 mg PO DAILY 03/21/22 02/12/23 Allergies Allergy/AdvReac Type Severity Reaction Status Date / Time vaccine adjuvant system, Allergy Intermediate local Verified 02/25/23 16:12 [id number] liposomal edema and [From Shingrix (PF)] rash , extensive varicella-zoster virus Allergy Intermediate local Verified 02/25/23 16:12 glycoprotein E, recombinant edema and [From Shingrix (PF)] rash , extensive Review of Systems Review of Systems: CONSTITUTIONAL: Denies fever, chills, or sweats. EYES: Denies visual changes, redness, or discharge. ENT: Denies rhinorrhea, congestion, sore throat, or otalgia. CARDIOVASCULAR: Denies chest pain, palpitations, or edema. RESPIRATORY: Denies cough or dyspnea. GASTROINTESTINAL: Denies abdominal pain, nausea, vomiting, or diarrhea. GENITOURINARY: Denies dysuria or hematuria. SKIN: Denies rash or itching. MUSCULOSKELETAL: Reports facial tenderness NEUROLOGIC: Denies headache, numbness, dizziness, or weakness. PSYCHIATRIC: Denies anxiety or depression. [facility] Past Medical History Medical History Bone spur of other site HTN (hypertension) Hyperlipidemia RLS (restless legs syndrome) Surgical History Surgical History H/O toe surgery H/O tubal ligation History of cholecystectomy History of total knee arthroplasty 01/30/22 OA Family History Family History Mother Hypertension Family history of Parkinson's disease Father Family history of elevated blood lipids Cerebrovascular accident Sibling Carcinoma of colon Family history of malignant neoplasm of breast in first degree relative Other Family history of malignant neoplasm of breast Social History Social History Social History: the patient lives with her who has dementia. She has 3 children. Her daughter Erika Sanchez is her durable power trial attorney for healthcare. 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 The patient states that she does not smoke or drink and she has never smoked. She does not use any marijuana or illicit drugs. Code status full code Smoking status: Never smoker Alcohol intake: never Substance use: never Substance use type: does not use Lack of Transportation: No Lack of Food: Never True Current Housing: I Have Housing Concerned About Future Housing: No Difficulty Paying Gas/Electric Bills: No Difficulty Paying for Meds: No Currently Unemployed: No Education: High School Diploma/GED Difficulty w/ Childcare or Family Care: No Living arrangements: with family Additional living arrangements comments: Gender identity (if verbalized by the patient): Female Spiritual care concerns: No Agree to blood products: Yes Exam Narrative: GENERAL: Well-appearing, well-nourished, no physical
[2023-02-25] MEDS: HYDROcodone/acetaminophen (*CRX) 5-325 MG TABLET 1 TAB PO (18:12)
== END 2023-02-25 18:34 | disposition home or self-care (01) ==
PROVIDERS: Emergency Provider Nurse Practitioner Family; PCP Emergency Medicine
DX: S02.32XA Fracture of orbital floor, left side, initial encounter for closed fracture (principal); S02.842A Fracture of lateral orbital wall, left side, initial encounter for closed fracture; S02.40DA Maxillary fracture, left side, initial encounter for closed fracture; S02.40FA Zygomatic fracture, left side, initial encounter for closed fracture; S02.2XXA Fracture of nasal bones, initial encounter for closed fracture; I10 Essential (primary) hypertension; E78.5 Hyperlipidemia, unspecified; G25.81 Restless legs syndrome; Z96.659 Presence of unspecified artificial knee joint; Z90.49 Acquired absence of other specified parts of digestive tract; M47.812 Spondylosis without myelopathy or radiculopathy, cervical region; M17.11 Unilateral primary osteoarthritis, right knee; Z79.82 Long term (current) use of aspirin; W01.0XXA Fall on same level from slipping, tripping and stumbling without subsequent striking against object, initial encounter
CPT/HCPCS: 70450; 70486; 72125; 73562; 99284; A9270

== ENCOUNTER 2023-05-20 14:14 | Outpatient (CLI) | payer MEDICARE, SELFPAY ==
[2023-05-20 20:36] LABS: Albumin Level 4.1 g/dL (3.5-5.1); Anion Gap 8 mmol/L (8-16); Blood Urea Nitrogen 24 mg/dL (7-17); Calcium 10.1 mg/dL (8.4-10.2); Carbon Dioxide 32 mmol/L (22-30); Chloride 101 mmol/L (98-107); Estimated Glomerular Filt Rate 53; Glucose 106 mg/dL (65-110); Phosphorus 3.6 mg/dL (2.5-4.5); Potassium 3.8 mmol/L (3.4-5.0); Sodium 141 mmol/L (137-145)
[2023-05-25 11:53] LABS: PRA 0.37 ng/mL/h (0.25-5.82)
== END 2023-05-20 14:15 | disposition home or self-care (01) ==
LOC: ANHGOSHLAB 14:15
PROVIDERS: PCP Emergency Medicine; Visit Provider Emergency Medicine
DX: I1A.0 Resistant hypertension (principal); Z79.899 Other long term (current) drug therapy
CPT/HCPCS: 36415; 80069; 82088; 84244; 84443

== ENCOUNTER → 2023-05-20 14:33 | Outpatient (CLI) | payer MEDICARE, SELFPAY ==
--- NOTE | ~2023-05-20 | US_ITS ---
EXAMINATION: US renal BI DATE: 05/20/2023 14:49 INDICATION: Resistant hypertension TECHNIQUE: Multiple ultrasound grayscale images of the kidneys were obtained. COMPARISON: None. FINDINGS: The right kidney measures 8.8 x 3.6 x 4.7 cm. The left kidney measures 10.5 x 3.8 x 4.7 cm. The kidne ys demonstrate normal echogenicity. There is no hydronephrosis in either kidney. No stones identifie d. The bladder is normal. IMPRESSION: 1. Normal kidneys without hydronephrosis. Reviewed, dictated and finalized at location A. ILER HAND
== END ==
PROVIDERS: PCP Emergency Medicine; Visit Provider Emergency Medicine
DX: I1A.0 Resistant hypertension (principal)
CPT/HCPCS: 76775

== ENCOUNTER 2023-10-04 03:09 | Emergency (ER) | payer MEDICARE, SELFPAY ==
[2023-10-04 03:14] VITALS: BP 173/61; PULSE 60; RESP 23; TEMP 36.9; O2SAT 96
[2023-10-04 04:27] VITALS: BP 113/63; PULSE 54; RESP 20; O2SAT 94
[2023-10-04] MEDS: FAMOTIDINE 20 MG/2 ML VIAL 40 MG IV PUSH (04:46)
[2023-10-04] MEDS: diphenhydrAMINE HCl INJ 50 MG/ML VIAL IV PUSH (04:49)
[2023-10-04] MEDS: dexAMETHasone SOD PHOS INJ 10 MG/ML 1 ML VIAL IV PUSH (04:53)
[2023-10-04 05:16] VITALS: BP 157/68; PULSE 58; RESP 19; O2SAT 97
--- NOTE | 2023-10-04 05:22 | ED.GENADULT ---
HPI - General Adult General Chief complaint: Allergic Reaction Stated complaint: allergic reaction Time Seen by Provider: 10/04/23 03:25 History of Present Illness HPI narrative: A 2-year-old female presenting with swollen limbs. Patient says that she had chocolate swirl ice cream at 10:30 p.m.. Afterwards she developed some swelling of her lips as well as some tingling sensations. No feelings of throat closure. No wheezing nausea vomiting diarrhea rashes or lightheadedness. No history of allergic reactions. No other symptoms. Related Data Home Medications Medication Instructions Recorded Confirmed cetirizine 10 mg capsule 10 mg PO DAILY 01/20/22 05/26/23 aspirin 81 mg tablet 81 mg PO DAILY 03/21/22 05/26/23 glucosamine-chondroitin 750 mg-600 2 tablet PO DAILY 05/20/23 05/26/23 mg tablet Allergies Allergy/AdvReac Type Severity Reaction Status Date / Time vaccine adjuvant system, Allergy Intermediate local Verified 10/04/23 03:18 AS01B liposomal edema and [From Shingrix (PF)] rash , extensive varicella-zoster virus Allergy Intermediate local Verified 10/04/23 03:18 glycoprotein E, recombinant edema and [From Shingrix (PF)] rash , extensive PMFSH Past Medical History Medical History Bone spur of other site HTN (hypertension) Hyperlipidemia RLS (restless legs syndrome) Surgical History Surgical History H/O toe surgery H/O tubal ligation History of cholecystectomy History of facial surgery surgery after fall History of total knee arthroplasty 01/30/22 OA Family History Family History Mother Hypertension Family history of Parkinson's disease Father Family history of elevated blood lipids Cerebrovascular accident Sibling Carcinoma of colon Family history of malignant neoplasm of breast in first degree relative Other Family history of malignant neoplasm of breast Social History Social History Social History: the patient lives with her who has dementia. She has 3 children. Her daughter Erika Sanchez is her durable power banking attorney for healthcare. 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 The patient states that she does not smoke or drink and she has never smoked. She does not use any marijuana or illicit drugs. Code status full code Smoking status: Never smoker Alcohol intake: never Substance use: never Substance use type: does not use Lack of Transportation: No Lack of Food: Never True Current Housing: I Have Housing Concerned About Future Housing: No Difficulty Paying Gas/Electric Bills: No Difficulty Paying for Meds: No Currently Unemployed: No Education: High School Diploma/GED Difficulty w/ Childcare or Family Care: No Living arrangements: alone Occupation/Education: retired Gender identity (if verbalized by the patient): Female Spiritual care concerns: No Agree to blood products: Yes Exam Narrative: APPEARANCE: No apparent distress. Head: Mild swelling of the lower lip, no swelling of the tongue or uvula no stridor EYES: EOMI, NOSE: Atraumatic NECK: Trachea midline RESPIRATORY: No increased rate of breathing clear to auscultation CARDIOVASCULAR: RRR, ABDOMINAL: Non-distended soft nontender MUSCULOSKELETAl: No obvious deformities NEURO: Alert. Moving 4/4 extremities SKIN:: Warm, dry. Normal color PSYCHIATRIC: Normal affect Course Vital Signs Vital signs: Vital Signs Temperature 98.4 F 10/04/23 03:14 Pulse Rate 60 10/04/23 03:14 Respiratory Rate 23 H 10/04/23 03:14 Blood Pressure 173/61 H 10/04/23 03:14 Pulse Oximetry 96 10/04/23 03:14 Oxygen Delivery Room Air 10/04/23 03:14 Temperature 98.4 F 10/04/23 03:14 Pulse R
[2023-10-04 05:38] VITALS: BP 139/69; PULSE 56; RESP 17; O2SAT 96
== END 2023-10-04 05:38 | disposition home or self-care (01) ==
PROVIDERS: Emergency Provider Emergency Medicine; PCP Emergency Medicine
DX: T78.3XXA Angioneurotic edema, initial encounter (principal); I10 Essential (primary) hypertension; E78.5 Hyperlipidemia, unspecified; X58.XXXA Exposure to other specified factors, initial encounter
CPT/HCPCS: 96374; 96375; 99284; J1100; J1200

== ENCOUNTER 2023-11-25 16:39 | Emergency (ER) | payer MEDICARE, SELFPAY ==
--- NOTE | ~2023-11-25 | CT_ITS ---
EXAMINATION: CT brain wo con DATE: 11/25/2023 17:00 INDICATION: Head injury. TECHNIQUE: Computed tomography (CT) of the head was performed without intravenous contrast. The mA wa s adjusted according to patient size. Iterative reconstruction technique was employed. The dose-lengt h product was 605.33 mGy-cm. COMPARISON: Head CT 02/25/2023 FINDINGS: There are scattered areas of low attenuation in the cerebral white matter, which is within normal limits for the patient's age. There is no intracranial hemorrhage, acute infarction, or abnorm al intracranial mass lesion. The ventricles are normal in size. There are likely changes of ocular le ns replacement surgeries. There are old fractures of left zygomatic maxillary complex with internal f ixation. The mastoid air cells are normal. The paranasal sinuses are clear. IMPRESSION: 1. Normal aging brain. Reviewed, dictated and finalized at location A. IMPRESSION: 1. Normal aging brain.
--- NOTE | ~2023-11-25 | CT_ITS ---
CT cervical spine wo con Ordering provider: Liu Horne History: . fall . Comparison: None. Technique: CT of the cervical spine was performed without contrast. Sagittal and coronal reformatted images were also obtained and reviewed. Automated exposure control and iterative reconstruction pola hnique were employed. The dose-length product was 605.33 mGy-cm. FINDINGS: VERTEBRAE: No subluxation or acute fracture. The occipital condyles are intact. Degenerative changes of the spine. DISC SPACES: Narrowing of the disc C5-C6. Multilevel facet joint disease. Multilevel uncovertebral kimi int osteoarthritic changes. Multilevel intervertebral foraminal narrowing. PARASPINOUS SOFT TISSUES: Bilateral carotid calcifications. Hypodensities in the thyroid gland sugges tive of nodules. Ultrasound evaluation advised. IMPRESSION: No acute osseous abnormality cervical spine. Reviewed, dictated and finalized at location A.
[2023-11-25 16:41] VITALS: BP 188/87; PULSE 85; RESP 16; TEMP 36.4; O2SAT 99
--- NOTE | 2023-11-25 17:24 | ED.FALL ---
HPI - Fall General Chief Complaint: Fall Stated Complaint: fall-head injury Time Seen by Provider: 11/25/23 17:01 History of Present Illness HPI Narrative: 83-year-old female presents emergency department with her family at bedside for a mechanical fall that occurred prior to arrival. Patient states she was getting male of her mailbox and when she pulled male at she lost her balance and tripped over papers. States she landed on the back and hit her head on the ground. She did not lose consciousness. She is not on anticoagulant. She denies vision changes, focal numbness or weakness, neck pain or back pain, other injuries acquired. Related Data Home Medications Medication Instructions Recorded Confirmed cetirizine 10 mg capsule 10 mg PO DAILY 01/20/22 10/08/23 aspirin 81 mg tablet 81 mg PO DAILY 03/21/22 10/08/23 glucosamine-chondroitin 750 mg-600 2 tablet PO DAILY 05/20/23 10/08/23 mg tablet Allergies Allergy/AdvReac Type Severity Reaction Status Date / Time vaccine adjuvant system, Allergy Intermediate local Verified 11/25/23 16:39 AS01B liposomal edema and [From Shingrix (PF)] rash , extensive varicella-zoster virus Allergy Intermediate local Verified 11/25/23 16:39 glycoprotein E, recombinant edema and [From Shingrix (PF)] rash , extensive Review of Systems Review of Systems: All systems reviewed & are unremarkable except as noted in HPI and below PMFSH Past Medical History Medical History Bone spur of other site HTN (hypertension) Hyperlipidemia RLS (restless legs syndrome) Surgical History Surgical History H/O toe surgery H/O tubal ligation History of cholecystectomy History of facial surgery surgery after fall History of total knee arthroplasty 01/30/22 OA Family History Family History Mother Hypertension Family history of Parkinson's disease Father Family history of elevated blood lipids Cerebrovascular accident Sibling Carcinoma of colon Family history of malignant neoplasm of breast in first degree relative Other Family history of malignant neoplasm of breast Social History Social History Social History: the patient lives with her who has dementia. She has 3 children. Her daughter Erika Sanchez is her durable power ip attorney for healthcare. 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 The patient states that she does not smoke or drink and she has never smoked. She does not use any marijuana or illicit drugs. Code status full code Smoking status: Never smoker Alcohol intake: never Substance use: never Substance use type: does not use Lack of Transportation: No Lack of Food: Never True Current Housing: I Have Housing Concerned About Future Housing: No Difficulty Paying Gas/Electric Bills: No Difficulty Paying for Meds: No Currently Unemployed: No Education: High School Diploma/GED Difficulty w/ Childcare or Family Care: No Living arrangements: alone Occupation/Education: retired Gender identity (if verbalized by the patient): Female Spiritual care concerns: No Agree to blood products: Yes Exam Narrative: GENERAL: Well-appearing, well-nourished, and in no acute distress. HEAD: Normocephalic, atraumatic. EYES: PERRLA and EOMI. ENT: Nares clear, no rhinorrhea or epistaxis. Mucous membranes moist. NECK: C-collar placed in triage. When removed after negative imaging, minimal midline cervical spinous tenderness without step-offs or deformities. BACK: no midline thoracolumbar spinous tenderness, step-offs or deformities CHEST: Clear to auscultation. No respiratory distress. HEART: Regular rate and rhythm. No murmur heard. Normal peripheral pul
== END 2023-11-25 17:32 | disposition home or self-care (01) ==
PROVIDERS: Emergency Provider Physician Assistant; PCP Emergency Medicine
DX: S09.90XA Unspecified injury of head, initial encounter (principal); I10 Essential (primary) hypertension; E78.5 Hyperlipidemia, unspecified; G25.81 Restless legs syndrome; Z96.659 Presence of unspecified artificial knee joint; Z90.49 Acquired absence of other specified parts of digestive tract; W18.09XA Striking against other object with subsequent fall, initial encounter
CPT/HCPCS: 70450; 72125; 99284

== ENCOUNTER 2024-06-10 09:06 | Outpatient (CLI) | payer MEDICARE, SELFPAY ==
--- OUTSIDE RECORDS SUMMARY | 2024-06-10 09:49 | XMS_ITS | Clinical Summary ---
Author Organization [facility] Address [address] [place] [address] Care Team Providers Care Data Entry Technician Name Role Phone Alexei Lambert Primary Care Provider Unavailabl e Source Comments [facility],non-owned Affiliates and Associated Physician Practices is amultiple site organization consisting of ambulatory clinics and hospital sitesin [place], [place], [place] and [place]. This disclosure is being madepursuant to the Care Everywhere program and may not contain all information available regarding this patient. Last updated 18.[facility] Allergies Active Allergy Reactions Criticality Noted Date Comments Varicella Virus Vaccine Live Rash Medium 03/11/2023 Had reaction to 1st dose of shingles vaccine; advised not to get subsequent doses by doctor. Medications * Be aware that medications may not be up to date on this document. Alwaysverify current medications with the patient. Medication Sig Dispensed Refills Start Date End Date Status allopurinol (Zyloprim) 300 MG tablet Take 1 (one) tablet by mouth once daily 02/09/2023 Active busPIRone (Buspar) 10 MG tablet Take 1 (one) tablet by mouth once daily 12/25/2022 Active furosemide (Lasix) 20 MG tablet Take 1 (one) tablet by mouth once daily 01/28/2023 Active metoprolol succinate XL 24hr (Toprol XL) 25 MG tablet Take 1 (one) tablet by mouth once daily 01/04/2023 Active sertraline (Zoloft) 25 MG tablet Take 1 (one) tablet by mouth once daily 12/03/2022 Active simvastatin (Zocor) 10 MG tablet Take 1 (one) tablet by mouth once daily 02/18/2023 Active traZODone (Desyrel) 50 MG tablet Take 1 (one) tablet by mouth once daily 02/12/2023 Active valsartan (Diovan) 320 MG tablet Take 1 (one) tablet by mouth once daily 02/09/2023 Active Multiple Vitamins-Minerals (ONE-A-DAY 50 PLUS PO) Active famotidine (Pepcid) 40 MG tablet Take 1 (one) tablet by mouth once daily Active acetaminophen (Tylenol) 325 MG tablet Take 2 (two) tablets by mouth every 4 hours as needed for Fever or Pain Maximum allowable Acetaminophen amount = 4 Grams (4000 mg) / 24 hours. 30 tablet 1 03/11/2023 Active ibuprofen (Motrin) 600 MG tablet Take 1 (one) tablet by mouth every 6 hours as needed for Pain 30 tablet 03/11/2023 Active oxyCODONE, immediate release, (Roxicodone) 5 MG tabletIndications: Pre-op evaluation Take 1 (one) tablet by mouth every 6 hours as needed for Pain 12 tablet 03/11/2023 Active Additional Information Patient not taking.Reported on 03/31/2023 chlorhexidine (Peridex) 0.12 % solution Swish and spit 15 mL 2 times daily 473 mL 03/11/2023 Active Active Problems No known active problems Immunizations Name Administration Dates Next Due INFLUENZA VACCINE, HIGH-DOSE , QUADR. (FLUZONE HIGH-DOSE QUADRIVALENT; 65Y+), 0.7 ML (HD-IIV4) 02/11/2023,01/24/2022 Zoster Hzv Vacc Recombinant Inj Im 04/24/2021 iNFLUENZA VACCINE, RECOM-WOLFF, QUADR. (FLUBLOCK QUADRIVALENT; 18Y+) (RIV4) 02/25/2021,01/10/2019,02/24/2018 Social History Tobacco Use Types Packs/Day Years Used Date Smoking Tobacco: Never Smokeless Tobacco: Never Tobacco Cessation:Counseling Given: Not Answered Alcohol Use Standard Drinks/Week Comments Never 0 (1 standard drink = 0.6 oz pur e alcohol) AUDIT-C Answer Date Recorded Q1: How often do you have a drink containing alcohol? Never 03/11/2023 Q2: How many drinks containi ng alcohol do you have on a typical day when you are drinking? Patient does not drink 11/22/202 3 Q3: How often do you have si x or more drinks on one occasion? Never 03/11/2023 Sex and Gender Information Value Date Recorded Sex Assigned at Not on file Gender Identity Not on file Sexual Orientation Not on file Last Filed Vital Signs Vital Sign Reading Time Taken Comments Blood Pressure 186/87 03/31/2023 12:44 PM EXTENSION WORKER Pulse 61 03/31/2023 12:44 PM EXTENSION WORKER Temperature 36.6 C (97.8 F) 03/11/2023 3:00 PM EXTENSION WORKER Respiratory Rate 13 03/11/2023 4:30 PM EXTENSION WORKER Oxygen Saturation 93% 03/11/2023 4:30 PM EXTENSION WORKER Inhaled Oxygen Concentration - - Weight 55.6 kg (122 lb 9.6 oz) 03/31/2023 12:44 PM EXTENSION WORKER Height 152.4 cm (5') 03/31/2023 12:44 PM EXTENSION WORKER Body Mass Index 23.94 03/31/2023 12:44 PM EXTENSION WORKER Plan of Treatment Health Maintenance Due Date Last Done Comments BONE DENSITY TESTING 1938 DTAP/TDAP/TD VACCINES (1 - Tdap) 1957 PNEUMOCOCCAL VACCINE 50+ (1 of 1 - PCV) 1988 Respiratory Syncytial Virus (RSV) Vaccine Pt: or over 60 yrs (1 - 1-dose 75+ series) 2013 ZOSTER VACCINE (2 of 2) 06/19/2021 04/24/2021 COVID-19 VACCINE (5 - season) 2023 01/15/2022, 02/22/2021, 06/26/2020, Additional history exists INFLUENZA VACCINE (#1) 2023 3, 01/24/2022, 02/25/2021, Additional history exists DEPRESSION SCREENING 04/20/2024 MEDICARE AWV CALENDAR YEAR 2024 HEPATITIS B VACCINE Aged Out No longe r eligible based on patient's age to complete this topic HIB VACCINE Aged Out No longer eligi ble based on patient's age to complete this topic HPV VACCINE Aged Out No longer eligi ble based on patient's age to complete this topic MENINGOCOCCAL (Group B) VACCINE Aged Out No longer eligible based on patient's age to complete this topic MENINGOCOCCAL VACCINE Aged Out No jonny lucas eligible based on patient's age to complete this topic Medical Devices Implanted Type Area Finishing Technician Device Identifier Shelf Expiration Date Model / Serial / Lot Screw 1.7mm 4mm Slf-Tap Ax Stab Lwr Prfl Implanted:Qty : 4 on 03/11/2023 by Erickson Charlton MD at [facility] Left: Zygomatic Arch Tamir Craniomaxillofacial [id number] / / Bone Screw, Axs St, 1.7x 5 P Implanted:Qty : 8 on 03/11/2023 by Erickson Charlton MD at [facility] Left: Zygomatic Arch [id number] / / Plate 10 Hl Mdfc .6mm Std Crv Leibinger Implanted:Qty : 1 on 03/11/2023 by Erickson Charlton MD at [facility] Left: Zygomatic Arch Tamir Craniomaxillofacial [id number] / / Plate Curved W Bar, Malleable 4 Hole Implanted:Qty : 1 on 03/11/2023 by Erickson Charlton MD at [facility] Left: Zygomatic Arch [id number] / / Advance Directives Documents on File Type Date Recorded Patient Home Health Clinician Expl anation Adv Directive/Living Will/POA 03/16/2023 2:05 PM Care Teams Data Entry Technician Relationship Specialty Start Date End Date Alexei Lambert PCP - General 03/03/23
--- OUTSIDE RECORDS SUMMARY | 2024-06-10 09:49 | XMS_ITS | Patient Health Summary ---
Author Organization [facility] Address [address] [facility] [place] [address] Care Team Providers Care Plastic Outfitter Name Role Phone Alexei Lambert Primary Care Provider Unavailjeff e Note from [facility],non-owned Affiliates and Associated Physician Practices is amultiple site organization consisting of ambulatory clinics and hospital sitesin [place], [place], [place] and [place]. This disclosure is being madepursuant to the Care Everywhere program and may not contain all information available regarding this patient. Last updated 18.[facility] Allergies * Varicella Virus Vaccine Live(Rash) -Medium Criticality Medications * Be aware that medications may not be up to date on this document. Alwaysverify current medications with the patient. * allopurinol (Zyloprim) 300 MG tablet(Started 02/09/2023) Take 1 (one) tablet by mouth once daily * busPIRone (Buspar) 10 MG tablet(Started 12/25/2022) Take 1 (one) tablet by mouth once daily * furosemide (Lasix) 20 MG tablet(Started 01/28/2023) Take 1 (one) tablet by mouth once daily * metoprolol succinate XL 24hr (Toprol XL) 25 MG tablet(Started 01/04/2023) Take 1 (one) tablet by mouth once daily * sertraline (Zoloft) 25 MG tablet(Started 12/03/2022) Take 1 (one) tablet by mouth once daily * simvastatin (Zocor) 10 MG tablet(Started 02/18/2023) Take 1 (one) tablet by mouth once daily * traZODone (Desyrel) 50 MG tablet(Started 02/12/2023) Take 1 (one) tablet by mouth once daily * valsartan (Diovan) 320 MG tablet(Started 02/09/2023) Take 1 (one) tablet by mouth once daily * Multiple Vitamins-Minerals (ONE-A-DAY 50 PLUS PO) * famotidine (Pepcid) 40 MG tablet Take 1 (one) tablet by mouth once daily * acetaminophen (Tylenol) 325 MG tablet(Started 03/11/2023) Take 2 (two) tablets by mouth every 4 hours as needed for Fever or Pain Maximum allowable Acetaminophen amount = 4 Grams (4000 mg) / 24 hours. 1 refill by 03/10/2024 * ibuprofen (Motrin) 600 MG tablet(Started 03/11/2023) Take 1 (one) tablet by mouth every 6 hours as needed for Pain * oxyCODONE, immediate release, (Roxicodone) 5 MG tablet(Started 03/11/2023) Take 1 (one) tablet by mouth every 6 hours as needed for Pain * chlorhexidine (Peridex) 0.12 % solution(Started 03/11/2023) Swish and spit 15 mL 2 times daily Active Problems No known active problems Immunizations * INFLUENZA VACCINE, HIGH-DOSE, QUADR. (FLUZONE HIGH-DOSE QUADRIVALENT; 65Y+), 0.7 ML (HD-IIV4)(Given 02/11/2023, 01/24/2022) * Zoster Hzv Vacc Recombinant Inj Im(Given 04/24/2021) * iNFLUENZA VACCINE, RECOM-WOLFF, QUADR. (FLUBLOCK QUADRIVALENT; 18Y+) (RIV4)(Given 02/25/2021, 01/10/2019, 02/24/2018) Social History Tobacco Use Types Packs/Day Years [...] you are drinking? Patient does not drink Q3: How often do you have si x or more drinks on one occasion? Never 03/11/2023 Sex and Gender Information Value Date Recorded Sex Assigned at Not on file Gender Identity Not on file Sexual Orientation Not on file Last Filed Vital Signs Vital Sign Reading Time Taken Comments Blood Pressure 186/87 03/31/2023 12:44 PM ORNAMENTAL METALWORK DESIGNER Pulse 61 03/31/2023 12:44 PM ORNAMENTAL METALWORK DESIGNER Temperature 36.6 C (97.8 F) 03/11/2023 3:00 PM ORNAMENTAL METALWORK DESIGNER Respiratory Rate 13 03/11/2023 4:30 PM ORNAMENTAL METALWORK DESIGNER Oxygen Saturation 93% 03/11/2023 4:30 PM ORNAMENTAL METALWORK DESIGNER Inhaled Oxygen Concentration - - Weight 55.6 kg (122 lb 9.6 oz) 03/31/2023 12:44 PM ORNAMENTAL METALWORK DESIGNER Height 152.4 cm (5') 03/31/2023 12:44 PM ORNAMENTAL METALWORK DESIGNER Body Mass Index 23.94 03/31/2023 12:44 PM ORNAMENTAL METALWORK DESIGNER Medical Devices Implanted Type Area Television Engineering Teacher Device Identifier Shelf Expiration Date Model / Serial / Lot Screw 1.7mm 4mm Slf-Tap Ax Stab Lwr Prfl Implanted:Qty : 4 on 03/11/2023 by Erickson Charlton MD at [facility] Left: Zygomatic Arch [place] Craniomaxillofacial [id number] / / Bone Screw, Axs St, 1.7x 5 P Implanted:Qty : 8 on 03/11/2023 by Erickson Charlton MD at [facility] Left: Zygomatic Arch [id number] / / Plate 10 Hl Mdfc .6mm Std Crv Leibinger Implanted:Qty : 1 on 03/11/2023 by Erickson Charlton MD at [facility] Left: Zygomatic Arch [place]ning Craniomaxillofacial [id number] / / Plate Curved W Bar, Malleable 4 Hole Implanted:Qty : 1 on 03/11/2023 by Erickson Charlton MD at [facility] Left: Zygomatic Arch [id number] / / Procedures * ENDOTRACHEAL TUBE NOTE(Performed 03/11/2023) * PA OPEN RX COMPLX CHEEK BONE FRAC(Performed 03/11/2023) Performed for Closed fracture of left zygomaticomaxillary complex with delayed healing, subsequent encounter * POTASSIUM WHOLE BLD(Performed 03/11/2023) Performed for Pre-op evaluation Results * ETT LINE PERFORMABLE (03/11/2023 12:56 PM ORNAMENTAL METALWORK DESIGNER) Narrative Yoseph Garza Anes Asst - 03/11/2023 12:56 PM ORNAMENTAL METALWORK DESIGNER Yoseph Garza Anes Asst 03/11/2023 12:56 PM Endotracheal Tube Placement: Patient Location: OR. Intubation Event Date/Time: 03/11/2023 12:25 PM Procedure: intubation ([id number]). Procedure Section: Sedation: under general anesthesia. Indications for Airway Management: anesthesia Induction: standard IV Patient Position: sniffing and supine Mask Ventilation: easy. Blade Type: Janiya Blade Size: 3 Laryngoscopy View: grade 1 (full cords) Tube: endotracheal tube (no stylet) Placement: oral Tube type: cuff - inflated Tube Size (MM): 6 Depth of Insertion (CM): 21 Measured From: lips Cuff Inflated With: air Number of Attempts: 1. Placement Verified By: direct visualization, bilateral breath sounds, chest auscultation and CO2 monitor Tube secured with: adhesive tape and ETT bang. Dentition unchanged? Yes Difficult Airway? No. Procedure Start Time: 03/11/2023 12:25 PM. Staff Section Anesthesia Provider: Tran Menjivar MD, Performed the procedure Tran Menjivar MD GENERAL ANESTHESI A ORDERABLES * POTASSIUM WHOLE BLD (03/11/2023 11:03 AM ORNAMENTAL METALWORK DESIGNER) Potassium Whole Blood 3.6 3.5 - 5.5 mmol/L 03/11/2023 11:10 AM ORNAMENTAL METALWORK DESIGNER [facility] Blood WHOLE BLOOD SPECIMEN / Unknown Venipuncture / Unknown 03/11/2023 11:03 AM ORNAMENTAL METALWORK DESIGNER 03/11/2023 11:04 AM ORNAMENTAL METALWORK DESIGNER Harriett Knutson WELDING TEACHER-[facility] - RACHNA JOSHUA ORDERABLES [facility] [address] [place] [address], [facility] [phone] Care Teams Plastic Outfitter Relationship Specialty Start Date End Date Alexei Lambert PCP - General 03/03/23
--- OUTSIDE RECORDS SUMMARY | 2024-06-10 09:49 | XMS_ITS | Referral Summary ---
Author Organization [facility] Address [address] [place] [address] Care Team Providers Care Grades 7 And 8 Teacher Name Role Phone Alexei Lambert Primary Care Provider Unavailabl e Source Comments [facility],non-owned Affiliates and Associated Physician Practices is amultiple site organization consisting of ambulatory clinics and hospital sitesin [place], [place], [place] and [place]. This disclosure is being madepursuant to the Care Everywhere program and may not contain all information available regarding this patient. Last updated 18.[facility] Allergies Active Allergy Reactions Criticality Noted Date [...] Comments Blood Pressure 186/87 03/31/2023 12:44 PM GLOVE FACTORY SEWER Pulse 61 03/31/2023 12:44 PM GLOVE FACTORY SEWER Temperature 36.6 C (97.8 F) 03/11/2023 3:00 PM GLOVE FACTORY SEWER Respiratory Rate 13 03/11/2023 4:30 PM GLOVE FACTORY SEWER Oxygen Saturation 93% 03/11/2023 4:30 PM GLOVE FACTORY SEWER Inhaled Oxygen Concentration - - Weight 55.6 kg (122 lb 9.6 oz) 03/31/2023 12:44 PM GLOVE FACTORY SEWER Height 152.4 cm (5') 03/31/2023 12:44 PM GLOVE FACTORY SEWER Body Mass Index 23.94 03/31/2023 12:44 PM GLOVE FACTORY SEWER Functional Status Functional Status Response Date of Assess ment Is person deaf or have serious hearing difficult y? No 03/11/2023 Is person blind or have serious difficulty seein g? No 03/11/2023 Does person have serious dif ficulty walking/climbing stairs? No 03/11/2023 Does person have difficulty dressing/bathing? No 03/11/2023 Does person have difficulty doing errands alone? No 03/11/2023 Cognitive Status Response Date of Assessm ent Does person have difficulty concentrating/remembering/making decisions? No 03/11/2023 Plan of Treatment Not on file Medical Devices Implanted Type Area Machine Chain Maker Device Identifier Shelf Expiration Date Model / Serial / Lot Screw 1.7mm 4mm Slf-Tap Ax Stab Lwr Prfl Implanted:Qty : 4 on 03/11/2023 by Erickson Charlton MD at [facility] Left: Zygomatic Arch Tamir Craniomaxillofacial [id number] / / Bone Screw, Axs St, 1.7x 5 P Implanted:Qty : 8 on 03/11/2023 by Erickson hCarlton MD at [facility] Left: Zygomatic Arch [id number] / / Plate 10 Hl Mdfc .6mm Std Crv Leibinger Implanted:Qty : 1 on 03/11/2023 by Erickson Charlton MD at [facility] Left: Zygomatic Arch Tamir Craniomaxillofacial [id number] / / Plate Curved W Bar, Malleable 4 Hole Implanted:Qty : 1 on 03/11/2023 by Erickson Charlton MD at [facility] Left: Zygomatic Arch [id number] / / Advance Directives Documents on File Type Date Recorded Patient Aircraft Life Support Fitter Expl anation Adv Directive/Living Will/POA 03/16/2023 2:05 PM Care Teams Grades 7 And 8 Teacher Relationship Specialty Start Date End Date Alexei Lambert PCP - General 03/03/23
--- OUTSIDE RECORDS SUMMARY | 2024-06-10 09:49 | XMS_ITS | Clinical Summary ---
Author Organization [facility] Address [facility] [place] [address] Care Team Providers Care Lawn Mower Name Role Phone Unavailable Primary Care Provider Unavailabl e Social History Tobacco Use Types Packs/Day Years Used Date Smoking Tobacco: Never Assessed Comments Unknown Sex and Gender Information Value Date Recorded Sex Assigned at Not on file Legal Sex Female 7:37 PM CDT Gender Identity Not on file Sexual Orientation Not on file Plan of Treatment Health Maintenance Due Date Last Done Comments DTaP, Tdap and Td Vaccines ( 1 - Tdap) 1957 Zoster Vaccines (1 of 2) 1988 Pneumococcal Vaccine: 65+ Ye ars (1 of 1 - PCV) 11/13/2003 RSV Immunization or 60+ Years (1 - 1-dose 75+ series) 2013 COVID-19 Vaccine (2023-2 5 season) 2023 Influenza Adult (#1) 2024 Meningococcal B Vaccine Aged Out No l onger eligible based on patient's age to complete this topic Meningococcal Vaccine Aged Out No jonny lucas eligible based on patient's age to complete this topic RSV Immunizations Under 20 Months Aged Out No longer eligible based on patient's age to complete this topic
[2024-06-10 14:54] LABS: Basophils Percent Auto 0.5 % (0.2-1.2); Eosinophils Absolute Auto 0.2 K/mm3 (0-0.3); Eosinophils Percent Auto 3.5 % (0-4.4); Hematocrit 39.7 % (37.0-47.0); Hemoglobin 12.4 g/dL (12.0-15.0); Immature Granulocyte Absolute 0.02 K/mm3 (0.00-0.031); Immature Granulocyte Percent A 0.3 % (0-0.5); Lymphocytes Absolute Auto 1.75 K/mm3 (0.9-3.2); Mean Corpuscular HGB Conc 31.2 g/dl (32-36); Mean Corpuscular Hemoglobin 31.2 pg (26-34); Mean Corpuscular Volume 99.7 fl (80-100); Monocytes Absolute Auto 0.6 K/mm3 (0.1-0.6); Monocytes Percent Auto 9.4 % (2.6-8.5); Neutrophils Absolute Auto 3.6 K/mm3 (1.3-6.7); Neutrophils Percent Auto 58.3 % (45.5-73.1); Platelet Count Result 197 k/mm3 (150-375); Red Blood Count 3.98 M/mm3 (4.2-5.4); Red Cell Distribution Width 13.2 % (11.5-14.5); White Blood Count 6.3 K/mm3 (4.5-10.0)
[2024-06-10 15:05] LABS: Alanine Aminotransferase 21 U/L (6-35); Albumin Level 4.1 g/dL (3.5-5.1); Alkaline Phosphatase 67 U/L (38-126); Anion Gap 9 mmol/L (4-12); Aspartate Amino Transferase 29 U/L (14-36); Bilirubin,Total 0.7 mg/dL (0.2-1.3); Blood Urea Nitrogen 25 mg/dL (7-17); Calcium 9.9 mg/dL (8.4-10.2); Carbon Dioxide 30 mmol/L (22-30); Chloride 105 mmol/L (98-107); Cholesterol 157 mg/dL (0-200); Estimated Glomerular Filt Rate 55; Glucose 93 mg/dL (65-110); HDL Direct 59 mg/dL; Potassium 4.9 mmol/L (3.4-5.0); Sodium 144 mmol/L (137-145); Triglycerides 74 mg/dL (<150)
[2024-06-10 15:16] LABS: LDL Cholesterol Direct 74 mg/dL
== END 2024-06-10 09:07 | disposition home or self-care (01) ==
LOC: ANHGOSHLAB 09:07
PROVIDERS: PCP Nurse Practitioner Family; Visit Provider Student in an Organized Health Care Education/Training Program
DX: E78.2 Mixed hyperlipidemia (principal); R42 Dizziness and giddiness; I10 Essential (primary) hypertension; R00.2 Palpitations
CPT/HCPCS: 36415; 80053; 80061; 84443; 85025

== ENCOUNTER 2024-06-14 15:00 | Outpatient (CLI) | payer MEDICARE, SELFPAY ==
--- OUTSIDE RECORDS SUMMARY | 2024-06-14 17:34 | XMS_ITS | Clinical Summary ---
Author Organization [facility] Address [facility] [facility] [place] [address] Care Team Providers Care Mission Coordinator Name Role Phone Unavailable Primary Care Provider [...]
--- OUTSIDE RECORDS SUMMARY | 2024-06-14 17:34 | XMS_ITS | Clinical Summary ---
Author Organization [facility] Address [address] [place] [address] Care Team Providers Care Furniture Fabricator Name Role Phone Alexei Lambert Primary Care Provider Unavailabl e Source Comments [facility],non-owned Affiliates and Associated Physician Practices is amultiple site organization consisting of ambulatory clinics and hospital sitesin [place], [place], [place] and [place]. This disclosure is being madepursuant to the Care Everywhere program and may not contain all information available regarding this patient. Last updated 18.[facility] Allergies Active Allergy Reactions Criticality Noted Date [...] Comments Blood Pressure 186/87 03/31/2023 12:44 PM TERRAZZO ROLLER Pulse 61 03/31/2023 12:44 PM TERRAZZO ROLLER Temperature 36.6 C (97.8 F) 03/11/2023 3:00 PM TERRAZZO ROLLER Respiratory Rate 13 03/11/2023 4:30 PM TERRAZZO ROLLER Oxygen Saturation 93% 03/11/2023 4:30 PM TERRAZZO ROLLER Inhaled Oxygen Concentration - - Weight 55.6 kg (122 lb 9.6 oz) 03/31/2023 12:44 PM TERRAZZO ROLLER Height 152.4 cm (5') 03/31/2023 12:44 PM TERRAZZO ROLLER Body Mass Index 23.94 03/31/2023 12:44 PM TERRAZZO ROLLER Plan of Treatment Health Maintenance Due Date [...] this topic Medical Devices Implanted Type Area Manager Regional Device Identifier Shelf Expiration Date Model / Serial / Lot Screw 1.7mm 4mm Slf-Tap Ax Stab Lwr Prfl Implanted:Qty : 4 on 03/11/2023 by Erickson Charlton MD at [facility] Left: Zygomatic Arch Tamir Craniomaxillofacial [id number] / / Bone Screw, Axs St, 1.7x 5 P Implanted:Qty : 8 on 03/11/2023 by Erickson Charlton MD at [facility] Left: Zygomatic Arch [id number] / / Plate 10 Hl Mdfc .6mm Std Crv Leibinger Implanted:Qty : 1 on 03/11/2023 by Erickson Charlton MD at [facility] Left: Zygomatic Arch Tamir Craniomaxillofacial [id number] / / Plate Curved W Bar, Malleable 4 Hole Implanted:Qty : 1 on 03/11/2023 by Erickson Charlton MD at [facility] Left: Zygomatic Arch [id number] / / Advance Directives Documents on File Type Date Recorded Patient Pile Driver Operator Helper Expl anation Adv Directive/Living Will/POA 03/16/2023 2:05 PM Care Teams Furniture Fabricator Relationship Specialty Start Date End Date Alexei Lambert PCP - General 03/03/23
--- OUTSIDE RECORDS SUMMARY | 2024-06-14 17:34 | XMS_ITS | Patient Health Summary ---
Author Organization [facility] Address [address] [place] [address] Care Team Providers Care Longwall Machine Operator Helper Name Role Phone Alexei Lambert Primary Care Provider Unavailjeff e Note from [facility],non-owned Affiliates and Associated Physician Practices is amultiple site organization consisting of ambulatory clinics and hospital sitesin [place], [place], [place] and [place]. This disclosure is being madepursuant to the Care Everywhere program and may not contain all information available regarding this patient. Last updated 18.[facility] Allergies * Varicella Virus Vaccine Live(Rash) -Medium [...] Comments Blood Pressure 186/87 03/31/2023 12:44 PM BUSINESS OBJECTS ANALYST Pulse 61 03/31/2023 12:44 PM BUSINESS OBJECTS ANALYST Temperature 36.6 C (97.8 F) 03/11/2023 3:00 PM BUSINESS OBJECTS ANALYST Respiratory Rate 13 03/11/2023 4:30 PM BUSINESS OBJECTS ANALYST Oxygen Saturation 93% 03/11/2023 4:30 PM BUSINESS OBJECTS ANALYST Inhaled Oxygen Concentration - - Weight 55.6 kg (122 lb 9.6 oz) 03/31/2023 12:44 PM BUSINESS OBJECTS ANALYST Height 152.4 cm (5') 03/31/2023 12:44 PM BUSINESS OBJECTS ANALYST Body Mass Index 23.94 03/31/2023 12:44 PM BUSINESS OBJECTS ANALYST Medical Devices Implanted Type Area Composite Laminator Device Identifier Shelf Expiration Date Model / Serial / Lot Screw 1.7mm 4mm Slf-Tap Ax Stab Lwr Prfl Implanted:Qty : 4 on 03/11/2023 by Erickson Charlton MD at [facility] Left: Zygomatic Arch [place] Craniomaxillofacial [id number] / / Bone Screw, Axs St, 1.7x 5 P Implanted:Qty : 8 on 03/11/2023 by Erickson Charlton MD at [facility] Left: Zygomatic Arch [id number] / / Plate 10 Hl Mdfc .6mm Std Crv Leibinger Implanted:Qty : 1 on 03/11/2023 by Erickson Charlton MD at [facility] Left: Zygomatic Arch [place] Craniomaxillofacial [id number] / / Plate Curved W Bar, Malleable 4 Hole Implanted:Qty : 1 on 03/11/2023 by Erickson Charlton MD at [facility] Left: Zygomatic Arch [id number] / / Procedures * ENDOTRACHEAL TUBE NOTE(Performed 03/11/2023) * [place] OPEN RX COMPLX CHEEK BONE FRAC(Performed 03/11/2023) Performed for Closed fracture of left zygomaticomaxillary complex with delayed healing, subsequent encounter * POTASSIUM WHOLE BLD(Performed 03/11/2023) Performed for Pre-op evaluation Results * ETT LINE PERFORMABLE (03/11/2023 12:56 PM BUSINESS OBJECTS ANALYST) Narrative Yoseph Garza Anes Asst - 03/11/2023 12:56 PM BUSINESS OBJECTS ANALYST Yoseph Garza Anes Asst 03/11/2023 12:56 PM Endotracheal Tube Placement: Patient Location: OR. Intubation Event Date/Time: 03/11/2023 12:25 PM Procedure: intubation ([id number]). Procedure Section: Sedation: under general anesthesia. Indications [...] * POTASSIUM WHOLE BLD (03/11/2023 11:03 AM BUSINESS OBJECTS ANALYST) Potassium Whole Blood 3.6 3.5 - 5.5 mmol/L 03/11/2023 11:10 AM BUSINESS OBJECTS ANALYST [facility] Blood WHOLE BLOOD SPECIMEN / Unknown Venipuncture / Unknown 03/11/2023 11:03 AM BUSINESS OBJECTS ANALYST 03/11/2023 11:04 AM BUSINESS OBJECTS ANALYST Harriett Knutson BIBLICAL STUDIES PROFESSOR-RISK INVESTIGATOR LAB - RACHNA JOSHUA ORDERABLES [facility] [address] [place] [address], [facility] [phone] Care Teams Longwall Machine Operator Helper Relationship Specialty Start Date End Date Alexei Lambert PCP - General 03/03/23
--- OUTSIDE RECORDS SUMMARY | 2024-06-14 17:34 | XMS_ITS | Referral Summary ---
Author Organization [facility] Address [address] [place] [address] Care Team Providers Care Supervisor Special Effects Name Role Phone Alexei Lambert Primary Care Provider Unavailabl e Source Comments [facility],non-owned Affiliates and Associated Physician Practices is amultiple site organization consisting of ambulatory clinics and hospital sitesin [place], [place], [place] and [place]. This disclosure is being madepursuant to the Care Everywhere program and may not contain all information available regarding this patient. Last updated 18.[facility] Allergies Active Allergy Reactions Criticality Noted Date [...] Comments Blood Pressure 186/87 03/31/2023 12:44 PM RETAIL RECEIVING CLERK Pulse 61 03/31/2023 12:44 PM RETAIL RECEIVING CLERK Temperature 36.6 C (97.8 F) 03/11/2023 3:00 PM RETAIL RECEIVING CLERK Respiratory Rate 13 03/11/2023 4:30 PM RETAIL RECEIVING CLERK Oxygen Saturation 93% 03/11/2023 4:30 PM RETAIL RECEIVING CLERK Inhaled Oxygen Concentration - - Weight 55.6 kg (122 lb 9.6 oz) 03/31/2023 12:44 PM RETAIL RECEIVING CLERK Height 152.4 cm (5') 03/31/2023 12:44 PM RETAIL RECEIVING CLERK Body Mass Index 23.94 03/31/2023 12:44 PM RETAIL RECEIVING CLERK Functional Status Functional Status Response Date of [...] on file Medical Devices Implanted Type Area Traveling Storekeeper Device Identifier Shelf Expiration Date Model / Serial / Lot Screw 1.7mm 4mm Slf-Tap Ax Stab Lwr Prfl Implanted:Qty : 4 on 03/11/2023 by Erickson Charlton MD at [facility] Left: Zygomatic Arch Tamir Craniomaxillofacial [id number] / / Bone Screw, Axs St, 1.7x 5 P Implanted:Qty : 8 on 03/11/2023 by Erickson Charlton MD at [facility] Left: Zygomatic Arch [id number] / / Plate 10 Hl Mdfc .6mm Std Crv Leibinger Implanted:Qty : 1 on 03/11/2023 by Erickson Charlton MD at [facility] Left: Zygomatic Arch Tamir Craniomaxillofacial [id number] / / Plate Curved W Bar, Malleable 4 Hole Implanted:Qty : 1 on 03/11/2023 by Erickson Charlton MD at [facility] Left: Zygomatic Arch [id number] / / Advance Directives Documents on File Type Date Recorded Patient Director Of Player Personnel Expl anation Adv Directive/Living Will/POA 03/16/2023 2:05 PM Care Teams Supervisor Special Effects Relationship Specialty Start Date End Date Alexei Lambert PCP - General 03/03/23
== END 2024-06-14 15:01 | disposition home or self-care (01) ==
PROVIDERS: PCP Nurse Practitioner Family; Visit Provider Student in an Organized Health Care Education/Training Program
DX: R00.2 Palpitations (principal); R42 Dizziness and giddiness
CPT/HCPCS: 93242